=== PATIENT | male | born 1965 | race Caucasian/White ===

== ENCOUNTER 2017-03-07 06:30 | Inpatient (IN) ==
[2017-03-07] MEDS ORDERED: Lidocaine -MPF 1% 2 ML VIAL ID ONE (06:49)
[2017-03-07] MEDS ORDERED: CeFAZolin Pre 2,000 MG/100 ML 2,000 MG/100 ML BAG IVPB ONE (06:49)
[2017-03-07] MEDS ORDERED: Vancomycin 1,750 MG in D5% in Water 500 ML IVPB ONE ×2 (06:49→21:00)
[2017-03-07] MEDS ORDERED: Albuterol 2.5 MG/3 ML NEBULIZER IH ONE (06:54)
[2017-03-07] MEDS ORDERED: Dexamethasone 4 MG/ML VIAL ONE (07:05)
[2017-03-07] MEDS ORDERED: *HR* Phenylephrine 10 MG/ML VIAL ONE (07:05)
[2017-03-07] MEDS ORDERED: Lidocaine -MPF 4% 5 ML AMPUL ONE (07:05)
[2017-03-07] MEDS ORDERED: Lidocaine -MPF 2% 2 ML VIAL ONE (07:05)
[2017-03-07] MEDS ORDERED: *HR* Succinylcholine 200 MG/10 ML VIAL IVP ONE (07:05)
[2017-03-07] MEDS ORDERED: Ondansetron 4 MG/2 ML VIAL ONE (07:05)
[2017-03-07] MEDS ORDERED: *HR* Remifentanil 1 MG VIAL IVP ONE ×2 (07:15→10:59)
[2017-03-07] MEDS ORDERED: *HR* FentaNYL (PF) 100 MCG/2 ML VIAL ONE ×2 (07:15→09:58)
[2017-03-07] MEDS ORDERED: *HR* Midazolam HCl 2 MG/2 ML VIAL ONE (07:15)
[2017-03-07] MEDS ORDERED: *HR* Propofol 200 MG/20 ML VIAL IVP ONE (07:20)
[2017-03-07] MEDS: Ringers Solution, Lactated 1,000 ML IVC SCH ×2 (07:23→14:14)
[2017-03-07] MEDS ORDERED: Lidocaine -MPF 1% 2 ML VIAL ONE (07:33)
--- NOTE | 2017-03-07 07:52 | Anesthesia Evaluation PreOp ---
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 History: Denies Any Significant HX Other Medical History: Renal (cri, stones) Anesthesia History: No Prior Anesthetic Complications, Past Anesthesia (back, cholecyst, vasect, umb filippo, lami) Alcohol Use: none Drug use: none Medications and Allergies Atorvastatin [Lipitor] 40 mg PO DAILY 05/22/16 [History] Gabapentin [Neurontin] 300 mg PO TID 05/22/16 [History] Lisinopril [Zestril] 10 mg PO DAILY 05/22/16 [History] Aspirin 81 mg PO DAILY 02/13/17 [History] Clopidogrel Bisulfate [Plavix] 75 mg PO DAILY #30 tablet 02/13/17 [Rx] Oxycodone HCl/Acetaminophen [Percocet 5-325 mg Tablet] 1 each PO Q6H PRN [History] Caffeine 400 mg PO BID 03/07/17 [History] Allergies ketorolac [From Toradol] Allergy (Verified 03/07/17 07:27) See Comments PER PATIENT "MADE ME WANT TO JUMP OUT OF MY SKIN" - Meds/Allergy Pre-op Review Medications Reviewed: Yes Allergies Reviewed: Yes Beta Blockers on Current Med List: No Anesthesia Results - Labs Laboratory Tests 02/08/17 02/08/17 02/08/17 10:46 10:46 10:46 Hgb 15.8 Hct 46.6 Plt Count 310 PT 10.5 INR 1.0 APTT 31.2 Sodium 141 Potassium 4.2 Creatinine 1.34 H - Imaging EKG: report reviewed (sr) Anesthesia Exam O2 Sat Height 1.85 m Height 1.85 m Height 1.85 m Weight 117.48 kg Weight 117.48 kg Weight 117.48 kg O2 Sat by Pulse Oximetry 93 O2 Sat by Pulse Oximetry 93 Vital Signs Temp Pulse Resp BP Pulse Ox 97.7 F 80 18 125/72 93 03/07/17 06:47 03/07/17 06:47 03/07/17 06:47 03/07/17 06:47 03/07/17 06:47 Height: 1.85 Weight: 117 NPO (# of Hours): >8 - HEENT Pupil (Motor): Pupils equal, EOMI Mallampati: II Teeth: Poor dentition Oral Opening: Greater than 3 - PURCHASING COORDINATOR LOC: Oriented PURCHASING COORDINATOR Motor: Normal RUE, Normal LUE, Normal RLE, Normal LLE, Normal Face PURCHASING COORDINATOR Sensory: Normal: RUE, LUE, RLE, LLE, Face - Cardiac Rhythm: Regular Murmur: None - Pulmonary Breath Sounds: bilateral Clear Respiratory Effort: Symmetrical Anesthesia Assess/Plan ASA Score: 3 Modified Cookie Scale for Level of Consciousness: Cooperative, oriented, and tranquil Anesthetic Plan: General Monitoring Plan: Standard Monitors Recovery Plan: PACU
--- NOTE | 2017-03-07 07:56 | History & Physical Report ---
Date of Encounter: 03/07/17 Time of Encounter: 07:54 24 Hour HP Update - Instructions Instructions: If the History and Physical is less than 30 days old and was completed prior to A.M. admission and or procedure and has NOT been updated on calendar day of procedure please complete this update prior to performing procedure. - Update Patient reports changes in Medical Condition: No Changes in examination, assessment, or condition: No Changes in Medication: No Preop tests/diagnostics Reviewed: Yes Surgery Remains Indicated: Yes Consent for Planned Operative Procedure(s) Verified: Yes - Pre-Operative Checklist Preoperative Checklist Indicated: Yes Prophylactic Antibiotic Ordered: Yes (vancomycin due to mrsa risk) Home Medications Include Beta Jacy: No Beta Jacy Taken Today (Day of Surgery): No Beta Jacy Taken Yesterday (Day Prior to Surgery): No Is VTE Prophylaxis Indicated?: Yes
[2017-03-07] MEDS ORDERED: EPHEDrine 50 MG/ML VIAL ONE (09:01)
[2017-03-07] MEDS ORDERED: Heparin 1,000 UNITS/500 mL NS 500 ML ONE (09:05)
[2017-03-07] MEDS ORDERED: *HR* Labetalol 20 MG/4 ML SYRINGE IVP PRN ×2 (09:32→14:26)
[2017-03-07] MEDS ORDERED: *HR* Heparin 5,000 UNIT/ML VIAL ONE ×2 (09:55→10:17)
[2017-03-07] MEDS ORDERED: *HR* HYDROmorphone 2 MG/ML SYRINGE ONE (13:11)
--- NOTE | 2017-03-07 13:21 | Operative Note ---
Date of procedure: 03/07/17 Pre-op diagnosis: Peripheral Vascular Disease with Disabling Claudication Post-op diagnosis: same Procedure: 1. Right proximal anterior tibial artery endarterectomy. 2. Right tibioperoneal trunk artery endarterectomy. 3. Right posterior tibial artery thrombectomy with 3 gabonese carissa catheter. Complications: None Anesthesia: EHSANA Surgeon: Albino Olvera Estimated blood loss (cc): 100 Specimen: Right tibial thrombus and plaque Condition: stable Disposition: PACU Procedure in Detail: Indications: The patient is a 51 year old male with a history of peripheral vascular disease with disabling claudication. He was found to have a right tibial artery occlusion on angiography. 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 Revascularization was recommended for symptomatic relief. Procedure: The patient was identified in the preoperative area. The risks, benefits, and alternatives of procedure were discussed and all questions were answered. He was taken to the operating room and placed in supine position on the operating room table. After the induction of general endotracheal anesthesia, he was cleaned and draped in normal sterile fashion. A longitudinal incision was made along the right medial calf sharply. Hemostasis was obtained with electrocautery. Through a process of blunt and sharp electrocautery dissection, the skin and subcutaneous tissues were incised and the gastrocnemius muscle was retracted to expose the right popliteal and tibial arteries. The popliteal, proximal anterior tibial, tibioperoneal trunk, peroneal and posterior tibial arteries were dissected proximally to distally and surrounded with vessel loops. Mutliple branching veins were ligated and divided with 2-0 and 3-0 silk suture. Care was taken to avoid injury to the nerve and veins. The patient received 5000 units of heparin intravenously and additional heparin throughout the case to maintain adequate anticoagulation. The vessels were occluded. A longitudinal arteriotomy into the right popliteal artery proximally and extended distally through the tibioperoneal trunk and into the origin of the posterior tibial artery. Significant thrombus and plaque was encountered extending from the proximal anterior tibial artery, through the tibioperoneal trunk and into the posterior tibial artery. The plaque and thrombus were excised using a dental freer. The specimen was sent to pathoology. Upon release of the distal vessel loop, no backbleeding was noted. A 3 gabonese carissa catheter was passed into the posterior tibial artery down to the foot. Upon withdrawal, additional thrombus was retrieved. Two addional passes were performed and no further thrombus was removed. Backbleeding was noted from the vessel. The posterior tibial artery was flushed with heparinized saline and reoccluded. The exposed vessel lumen was irrigated with heparinized saline and bovine pericardial patch was cut to fit the defect and sutured in place with running 6- 0 Prolene. Prior to completing the patch anastomosis, each vessel was flushed individually, then reoccluded. Heparinized saline was infused into the lumen. The patch was completed and flow was restored. Thrombin and Gelfoam were used to aid in hemostasis. Polyphasic signal was noted distal to the distal end of the patch as well as the posterior tibial artery. Wound was irrigated with antibiotic-containing saline. Platelet-rich and platelet-poor plasma were infused into the wound. The wounds were reapproximated with layer of 2-0 Vicryl followed by two layers of 3-0 and Vicryl 3-0 Monocryl in the subcuticular layer. Sterile dressings were applied. The patient was extubated, taken to recovery room in stable condition.
[2017-03-07] MEDS: *HR* HYDROmorphone (PF) 1 MG/ML SYRINGE IVP PRN ×4 (13:28→14:12)
[2017-03-07] MEDS ORDERED: Acetaminophen IV 1,000 MG/100 ML INFUS..BTL IVPB ONE (13:38)
--- NOTE | 2017-03-07 14:19 | Event Note ---
Date of Encounter: 03/07/17 Time of Encounter: 13:30 The patient is comfortable, right foot is warm with dorsalis and posterior tibial artery signals. Pain control and clear liquids tonight. Labs tomorrow.
[2017-03-07] MEDS ORDERED: *HR* HYDROcodone/Acet 5/325 mg TABLET PO PRN (14:26)
[2017-03-07] MEDS ORDERED: *HR* OxyCODONE Immed Rel 5 MG TABLET PO PRN (14:26)
[2017-03-07] MEDS ORDERED: Acetaminophen 325 MG TABLET PO PRN (14:26)
[2017-03-07] MEDS ORDERED: Naloxone 0.4 MG/ML INJ IVP PRN (14:26)
--- NOTE | 2017-03-07 14:33 | Anesthesia Evaluation Post Op ---
Date of Encounter: 03/07/17 Time of Encounter: 14:32 - Vital Signs Vital Signs: Vital Signs/O2 Sat/Glucose, Most Recent Temp Pulse Resp BP Pulse Ox 97.7 F 77 12 110/71 93 03/07/17 14:15 03/07/17 14:15 03/07/17 14:15 03/07/17 14:15 03/07/17 14:15 - Lungs Lungs: Clear Ascult./Percussion - Airway Airway: Non-obstructed - Cardiovascular Regular Rate, Baseline Rhythm - Mental Status Mental Status: Asleep with brisk response to light stimulation - Pain Pain Scale: 5 Pain Scale used: Numeric (1 - 10) - Nausea Vomiting Nausea Vomiting: Not Present - Hydration Hydration: Tolerates oral liquids Notes: 03/07/17 14:33 naac - Discharge PostOp Status: Transfer Patient to floor
[2017-03-07] MEDS: *HR* Morphine 2 MG/ML SYRINGE IVP PRN ×2 (14:53→16:41)
[2017-03-07] MEDS: 0.9 % Sodium Chloride 1,000 ML IVC SCH (14:58)
[2017-03-07] MEDS: Gabapentin 300 MG CAPSULE PO SCH ×2 (15:29→21:39)
[2017-03-07] MEDS: ceFAZolin 2,000 MG in D5% in Water 100 ML IVPB SCH ×2 (16:24→23:02)
[2017-03-07] MEDS: *HR* Metoprolol 5 MG/5 ML VIAL IVP SCH ×2 (17:32→23:51)
[2017-03-07] MEDS: *HR* Heparin 5,000 UNIT/ML VIAL SQ SCH (17:47)
[2017-03-07] MEDS ORDERED: Vancomycin 0 MG in D5% in Water 250 ML IVPB ONE (19:00)
[2017-03-07] MEDS: Ondansetron 4 MG/2 ML VIAL IVP PRN (23:01)
[2017-03-08] MEDS ORDERED: *HR* Promethazine 25 MG/ML VIAL IVP ONE (00:15)
[2017-03-08] MEDS: *HR* Morphine 2 MG/ML SYRINGE IVP PRN (02:04)
[2017-03-08] MEDS: *HR* Heparin 5,000 UNIT/ML VIAL SQ SCH (04:46)
[2017-03-08] MEDS: 0.9 % Sodium Chloride 1,000 ML IVC SCH (04:46)
[2017-03-08] MEDS: *HR* Metoprolol 5 MG/5 ML VIAL IVP SCH ×2 (04:47→12:55)
[2017-03-08] MEDS ORDERED: Metoclopramide 10 MG/2 ML VIAL IVP PRN (05:46)
[2017-03-08] MEDS ORDERED: *HR* Heparin 5,000 UNIT/ML VIAL SQ SCH (06:00)
[2017-03-08 06:11] LABS: Basophils # 0.1 K/mcL (0.0-0.2); Basophils % 0.2 %; Hematocrit 39.1 % (37.5-50.1); Immature Granulocytes % 0.6 % (0-4); Lymphocytes # 2.8 K/mcL (0.6-4.6); Lymphocytes % 12.3 %; Mean Corpuscular HGB Conc 33.2 g/dL (31.6-35.5); Mean Corpuscular Hemoglobin 28.8 pg (28.0-33.3); Mean Corpuscular Volume 86.7 fL (83.0-100.0); Mean Platelet Volume 8.7 fL (9.4-12.4); Monocytes # 1.2 K/mcL (0.0-1.3); Monocytes % 5.4 %; Neutrophils # 18.3 K/mcL (1.6-8.9); Platelet Count 294 K/mcL (140-400); Red Blood Count 4.51 M/mcL (4.19-5.50); Red Cell Distribution Width 13.9 % (11.5-14.5); Segmented Neutrophils % 81.5 %
[2017-03-08 06:27] LABS: BUN/Creatinine Ratio 14 (6-26); Blood Urea Nitrogen 14 mg/dL (8-26); Calcium 8.8 mg/dL (8.6-10.8); Carbon Dioxide 19 mEq/L (19-29); Chloride 107 mEq/L (98-109); Glucose 106 mg/dL (70-99); Osmolality,Calculated 281 (280-300); Sodium 135 mEq/L (136-145); eGFR For African Americans > 60 (> 60); eGFR For Non-African Americans > 60 (> 60)
[2017-03-08] MEDS: Ondansetron 4 MG/2 ML VIAL IVP PRN (07:23)
--- NOTE | 2017-03-08 07:36 | Discharge Summary ---
Date of Encounter: 03/08/17 Time of Encounter: 15:35 - Discharge Diagnosis (1) Atherosclerosis of [place] arteries of extremities with intermittent claudication, bilateral legs Priority: Primary Status: Chronic Comments: The patient is postoperative day #1 after a right tibial endarterectomy and thrombectomy. His wound is healing. He is alert and comfortable. His pedal signals are present and his compartments are soft. He will be discharged today. (2) Essential hypertension Priority: Secondary Status: Chronic Comments: He was counseled regarding atherosclerotic risk factor reduction. (3) CKD (chronic kidney disease) stage 3, GFR 30-59 ml/min Priority: Secondary Status: Chronic Comments: His creatinine has improved with hydration. His kidney disease is stable. (4) Mixed hyperlipidemia Priority: Secondary Status: Chronic (5) Tobacco abuse Priority: Secondary Status: Chronic - Discharge Medications Prescriptions: Ibuprofen [Motrin] 800 mg PO Q8HR PRN #30 tablet PRN Reason: postoperative pain Acetaminophen [Tylenol] 1,000 mg PO Q6H PRN #90 tablet PRN Reason: postoperative pain Home Medications: Atorvastatin [Lipitor] 40 mg PO DAILY 05/22/16 [History] Gabapentin [Neurontin] 300 mg PO TID 05/22/16 [History] Lisinopril [Zestril] 10 mg PO DAILY 05/22/16 [History] Aspirin 81 mg PO DAILY 02/13/17 [History] Clopidogrel Bisulfate [Plavix] 75 mg PO DAILY #30 tablet 02/13/17 [Rx] Caffeine 400 mg PO BID 03/07/17 [History] Acetaminophen [Tylenol] 1,000 mg PO Q6H PRN #90 tablet 03/08/17 [Rx] Ibuprofen [Motrin] 800 mg PO Q8HR PRN #30 tablet 03/08/17 [Rx] Allergies/Adverse Reactions: Allergies ketorolac [From Toradol] Allergy (Verified 03/07/17 07:27) See Comments PER PATIENT "MADE ME WANT TO JUMP OUT OF MY SKIN" Date of admission: 03/07/17 11:48 Primary care physician: Jaiden Evans MD Procedure(s) Performed: Right tibial artery thrombectomy and endarterectomy Discharging clinician: Albino Olvera Anticipated date of discharge: 03/08/17 - Patient Status Disposition: Home, Self-Care Condition: Good Functional capacity at discharge: independent ambulation Overall status at discharge: patient is back to baseline - Discharge Instructions Instructions: Surgical Site Infections (GEN) Follow Up With: Jaiden Evans MD [Primary Care Provider] - 03/13/17 1:15 pm () Albino Olvera MD [Partnered Physician] - 04/16/17 1:00 pm () Additional Instructions: May remove bandage and shower on 03/09/17. Wash wound gently and pat to dry. Apply dry gauze to wound daily for 7 days. No tub baths or swimmin until 04/01/17. Call Dr. Olvera at [phone] with questions or concerns. - Diet and Activity Activity: increase activity as tolerated Diet: advance to your usual diet - Hospital Course Hospital course: Mr. Samuel is a 51 year old male who was admitted on 03/07/17. He underwent a right tibial thrombectomy and endarterectomy. He tolerated the procedure well. His foot was warm, his incision was healing and he was comfotable on post operative day #1. He was discharged in stable condition without complication. Time spent discussing smoking cessation with patient: 3 to 10 minutes - Time Spent with Patient Total time spent providing and/or coordinating discharge services: Exam Vital Signs, Last 4 Hours Temp Pulse Resp BP Pulse Ox 03/08/17 03:57 98.8 F 85 16 104/67 91 General: Present: Conversant, No Apparent Distress HEENT: Present: Atraumatic Cardiac: Present: Reg Rate and Rhythm Lungs: Present: Normal Breath Sounds, No Wheeze, Rales, Rhonchi Neuro: Present: Alert and responsive, No focal deficits noted, Motor nerves grossly intact, Sensory nerves grossly intact Abdomen: Present: Soft Vascular: Present: Surgical incisions (no hematoma, no erythema, compartments soft) Skin: Present: No rashes noted on visualized skin - VTE Documentation of Mechanical Device: Intermittent pneumatic compression device
[2017-03-08] MEDS ORDERED: *HR* Promethazine 25 MG/ML VIAL IVP PRN (08:38)
[2017-03-08] MEDS ORDERED: Ibuprofen 800 MG TABLET PO PRN (08:42)
[2017-03-08] MEDS ORDERED: Aspirin 81 MG TAB.CHEW PO SCH (09:00)
[2017-03-08] MEDS: Gabapentin 300 MG CAPSULE PO SCH (09:49)
[2017-03-08 11:01] VITALS: BP 123/77
== END 2017-03-08 17:05 | disposition home or self-care (01) | DRG 254 ==
LOC: SAMDAY 06:30 → 2NNU 11:48
PROVIDERS: ADMIT Surgery; ATTEND Surgery

== ENCOUNTER 2017-05-08 08:45 | Inpatient (IN) ==
[2017-05-08] MEDS ORDERED: 0.9 % Sodium Chloride 1,000 ML IVC ONE (09:14)
[2017-05-08] MEDS ORDERED: Ondansetron ODT 4 MG TAB.RAPDIS SL ONE (09:14)
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
[2017-05-08 09:34] LABS: Bilirubin,Urine Negative (Negative); Blood,Urine Small (Negative); Color,Urine Yellow (Yellow); Glucose,Urine (UA) Normal (Normal); Ketones,Urine Negative (Negative); Leukocyte Esterase,Urine Small (Negative); Nitrite,Urine Negative (Negative); Protein,Urine 30 mg/dL (Neg-Trace); Specific Gravity,Urine 1.013 (1.010-1.025); Urobilinogen,Urine Normal (Normal)
[2017-05-08 09:37] LABS: Hyaline Casts,Urine None Seen per lpf (None-Few); Squamous Epithelial Cell,Urine Moderate per lpf (None-Few); WBC,Urine 15-30 per hpf (0-3)
[2017-05-08 09:38] LABS: Basophils # 0.1 K/mcL (0.0-0.2); Basophils % 0.6 %; Eosinophils % 0.3 %; Hematocrit 41.6 % (37.5-50.1); Hemoglobin 13.6 g/dL (12.9-16.9); Immature Granulocytes % 0.3 % (0-4); Lymphocytes # 1.3 K/mcL (0.6-4.6); Lymphocytes % 10.6 %; Mean Corpuscular HGB Conc 32.7 g/dL (31.6-35.5); Mean Corpuscular Hemoglobin 29.6 pg (28.0-33.3); Mean Corpuscular Volume 90.4 fL (83.0-100.0); Mean Platelet Volume 8.7 fL (9.4-12.4); Monocytes # 0.9 K/mcL (0.0-1.3); Monocytes % 7.3 %; Neutrophils # 10.1 K/mcL (1.6-8.9); Platelet Count 324 K/mcL (140-400); Red Cell Distribution Width 14.5 % (11.5-14.5); Segmented Neutrophils % 80.9 %
[2017-05-08 09:40] LABS: Clarity,Urine Slightly Hazy (Clear)
[2017-05-08 09:53] LABS: Albumin 3.2 g/dL (3.5-5.0); Albumin/Globulin Ratio 0.7 (1.1-2.2); Bilirubin,Direct 0.2 mg/dL (0.0-0.5); Bilirubin,Indirect 0.2 mg/dL (0.0-1.2); Bilirubin,Total 0.4 mg/dL (0.2-1.2); Globulin 4.3 g/dL (2.4-3.5); Potassium 6.4 mEq/L (3.5-4.5); Total Protein 7.5 g/dL (6.0-8.3)
[2017-05-08 09:53] LABS: Bacteria,Urine Few per hpf (None-Few)
[2017-05-08] MEDS ORDERED: Albuterol 2.5 MG/3 ML NEBULIZER IH ONE (10:20)
[2017-05-08] MEDS ORDERED: Insulin Human Regular 10 UNIT in 0.9 % Sodium Chloride 10 ML IV ONE (10:21)
[2017-05-08] MEDS ORDERED: *HR* Dextrose 50 % in Water (Syg) 50 ML SYRINGE IVP ONE (10:25)
[2017-05-08] MEDS ORDERED: Sodium Bicarbonate 50 MEQ/50 ML VIAL IVP ONE ×2 (10:39→11:30)
[2017-05-08] MEDS ORDERED: D5% in Water 1,000 ML IVC SCH (10:45)
[2017-05-08] MEDS ORDERED: 0.9 % Sodium Chloride 1,000 ML IVC SCH (11:45)
[2017-05-08] MEDS: Sodium Bicarbonate 150 MEQ in D5% in Water 1,000 ML IVC SCH (11:48)
[2017-05-08] MEDS ORDERED: Naloxone 0.4 MG/ML INJ IVP PRN (11:53)
[2017-05-08] MEDS ORDERED: Ondansetron 4 MG/2 ML VIAL IVP PRN (11:53)
[2017-05-08] MEDS ORDERED: Pantoprazole 40 MG VIAL IVP SCH (12:00)
[2017-05-08] MEDS ORDERED: Acetaminophen 325 MG TABLET PO PRN (12:04)
[2017-05-08] MEDS ORDERED: CloNIDine Patch 0.1 MG PATCH (WEEKLY) TD SCH (12:15)
[2017-05-08] MEDS ORDERED: Gabapentin 300 MG CAPSULE PO PRN (12:16)
[2017-05-08] MEDS: Nicotine 14 MG PATCH.TD24 TD SCH (12:21)
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
[2017-05-08] MEDS: *HR* HYDROcodone/Acet 5/325 mg TABLET PO PRN ×2 (16:11→21:10)
[2017-05-08 17:08] LABS: Albumin 3.1 g/dL (3.5-5.0); Albumin/Globulin Ratio 0.8 (1.1-2.2); Bilirubin,Total 0.4 mg/dL (0.2-1.2); Calcium 9.5 mg/dL (8.6-10.8); Total Protein 7.1 g/dL (6.0-8.3)
[2017-05-08] MEDS: *HR* Heparin 5,000 UNIT/ML VIAL SQ SCH ×3 (17:37→23:32)
[2017-05-08 19:10] LABS: Amphetamine Screen,Urine Negative ng/mL (Cutoff=1000); Barbiturate Screen,Urine Negative ng/mL (Cutoff=200); Benzodiazepines Screen,Urine Negative ng/mL (Cutoff=200); Cannabinoid Screen,Urine Negative ng/mL (Cutoff = 50); Cocaine Screen,Urine Negative ng/mL (Cutoff= 300); Opiate Screen,Urine Negative ng/mL (Cutoff=300); Phencyclidine Screen,Urine Negative ng/mL (Cutoff=25)
[2017-05-08] MEDS: Pantoprazole 40 MG VIAL IVP SCH (21:10)
[2017-05-09] MEDS: Sodium Bicarbonate 150 MEQ in D5% in Water 1,000 ML IVC SCH ×2 (00:13→11:25)
[2017-05-09] MEDS ORDERED: 0.9 % Sodium Chloride 500 ML IVC ONE (04:25)
[2017-05-09] MEDS ORDERED: 0.9 % Sodium Chloride 500 ML ONE (04:42)
--- NOTE | 2017-05-09 05:42 | Electrocardiograph Report ---
[address] [address] Test Date: 2017-05-08 Pat Name: Larissa Samuel Department: 102 Room: 2N05 Gender: M Triage Register Nurse: : 1965 Requested By: Anu Chandler Order Number: [id number] Reading MD: Rylan Almaguer MD Measurements Intervals [place] Rate: 67 P: 41 CA: 164 QRS: 81 QRSD: 105 T: 36 QT: 389 QTc: 404 Interpretive Statements SINUS RHYTHM LOW QRS VOLTAGE IN PRECORDIAL LEADS Electronically Signed On 05-09-2017 5:40:35 EDT by Rylan Almaguer MD
[2017-05-09 06:21] LABS: Basophils # 0.1 K/mcL (0.0-0.2); Basophils % 0.7 %; Eosinophils # 0.2 K/mcL (0.0-0.6); Eosinophils % 1.6 %; Hematocrit 33.7 % (37.5-50.1); Immature Granulocytes % 0.3 % (0-4); Lymphocytes # 2.4 K/mcL (0.6-4.6); Lymphocytes % 24.3 %; Mean Corpuscular HGB Conc 33.2 g/dL (31.6-35.5); Mean Corpuscular Hemoglobin 29.3 pg (28.0-33.3); Mean Corpuscular Volume 88.2 fL (83.0-100.0); Monocytes # 0.9 K/mcL (0.0-1.3); Monocytes % 9.3 %; Neutrophils # 6.2 K/mcL (1.6-8.9); Platelet Count 276 K/mcL (140-400); Red Blood Count 3.82 M/mcL (4.19-5.50); Red Cell Distribution Width 14.5 % (11.5-14.5); Segmented Neutrophils % 63.8 %
[2017-05-09 06:28] LABS: Prothrombin Time 10.2 Seconds (9.4-12.1)
[2017-05-09 06:31] LABS: Activated Partial Thrombo Time 25.7 Seconds (26.0-36.0)
[2017-05-09 06:39] LABS: Calcium 8.3 mg/dL (8.6-10.8); Chol/HDL Ratio 9.1 (0-4.9); Magnesium 1.7 mg/dL (1.6-2.6); Potassium 4.6 mEq/L (3.5-4.5)
[2017-05-09 06:55] LABS: Hemoglobin 11.2 g/dL (12.9-16.9)
[2017-05-09] MEDS: Nicotine 14 MG PATCH.TD24 TD SCH (09:10)
[2017-05-09] MEDS: Pantoprazole 40 MG VIAL IVP SCH ×2 (09:12→20:13)
[2017-05-09] MEDS: *HR* Heparin 5,000 UNIT/ML VIAL SQ SCH ×2 (09:12→20:13)
--- NOTE | 2017-05-09 09:15 | Internal Med Progress Note ---
Date of Encounter: 05/09/17 Time of Encounter: 09:13 - Assessment and plan (1) STEFANY (acute kidney injury) Current Visit: Yes Status: Acute Assessment and plan: Patient is noted to have acute on chronic renal failure. Baseline serum creatinine noted to be around 1.5 in January 2017, presented with serum creatinine of 12. Nephrology consult and follow-up appreciated, acute renal failure is likely due to contrast-induced nephropathy, use of NSAIDs, FILIBERTO inhibitor, dehydration due to GI losses. Recommend conservative management with IV hydration, no urgent indication for hemodialysis at this time. Avoid new nephrotoxic agents. Monitor and replete electrolytes closely. Renal ultrasound shows no acute abnormality/hydronephrosis. (2) Hyperkalemia Current Visit: Yes Status: Resolved Assessment and plan: Related to acute renal failure. Noted to be improving. (3) Nausea & vomiting Current Visit: Yes Status: Resolved Assessment and plan: Possibly due to uremia, NSAID-induced gastritis less likely. Currently resolved symptoms. Qualifiers: Vomiting type: unspecified Vomiting Intractability: non-intractable Qualified Code(s): R11.2 - Nausea with vomiting, unspecified (4) Metabolic acidosis Current Visit: Yes Status: Acute Assessment and plan: Related to acute renal failure. Continue IV bicarbonate drip. Nephrology on board. (5) UTI (urinary tract infection) Current Visit: Yes Status: Acute Assessment and plan: Urinalysis suggestive of UTI. Continue IV Rocephin and follow up final urine culture. Qualifiers: Urinary tract infection type: site unspecified Hematuria presence: without hematuria Qualified Code(s): N39.0 - Urinary tract infection, site not specified (6) Lumbar radiculopathy Current Visit: Yes Status: Chronic Assessment and plan: Patient has history of back surgery and chronic low back pain. Follows with pain management as an outpatient. (7) Essential hypertension Current Visit: Yes Status: Chronic Assessment and plan: Hold FILIBERTO inhibitor for now. Blood pressure noted to be well controlled. (8) CKD (chronic kidney disease) stage 3, GFR 30-59 ml/min Current Visit: Yes Status: Chronic (9) Mixed hyperlipidemia Current Visit: Yes Status: Chronic (10) Tobacco abuse Current Visit: Yes Status: Chronic (11) PAD (peripheral artery disease) Current Visit: Yes Status: Chronic Assessment and plan: Follows with vascular surgery. Recently underwent right tibial endarterectomy. Continue aspirin and Plavix. - Subjective Interval history: Feels better; improved nausea and vomiting, tolerates diet; no abdominal pain or diarrhea; no difficulty breathing, chest pain; - Constitutional Vitals: Temp Pulse Resp BP Pulse Ox 98.1 F 66 15 90/55 94 05/09/17 07:16 05/09/17 07:16 05/09/17 07:16 05/09/17 07:16 05/09/17 07:16 General appearance: Present: cooperative, A&O X 3, obese, answers questions appropriately - Respiratory Respiratory exam: Present: CTAB. Absent: accessory muscle use, rales, rhonchi, wheezes - Cardiovascular Cardiovascular exam: Present: RRR, +S1, +S2. Absent: diastolic murmur, gallop, rubs, systolic murmur - GI/Abdominal GI/Abdominal exam: Present: normal bowel sounds, soft, no peritoneal signs. Absent: distended, tenderness - Extremities Exam Extremities exam: Present: full ROM, pedal edema (trace pedal edema right>left; right medial leg vascular surgical scar), warm, radial pulses palpable and symmetrical. Absent: calf tenderness, cyanotic - Neurological Exam Neurological exam: Present: CN II-XII intact, oriented X3, no focal deficits. Absent: pronater drift, facial droop, speech deficit Internal Medicine: Result - Labs CBC & Chem 7: 05/09/17 05:09 05/09/17 05:09 Labs: Short CBC 05/09/17 Range/Units 05:09 WBC 9.7 (4.3-11.1) K/mcL Hgb 11.2 L D (12.9-16.9) g/dL Hct 33.7 L (37.5-50.1) % Plt Count 276 (140-400) K/mcL Neutrophils # 6.2 (1.6-8.9) K/mcL BMP 05/08/17 05/09/17 16:47 05:09 Sodium 142 140 Potassium 5.0 H D 4.6 H Chloride 108 105 Carbon Dioxide 17 L 17 L BUN 100 H 87 H Creatinine 10.88 H 9.39 H Glucose 98 137 H Calcium 9.5 8.3 L Liver Function 05/08/17 Range/Units 16:47 Total Bilirubin 0.4 (0.2-1.2) mg/dL AST 7 (5-34) Units/L ALT 10 (0-55) Units/L Alkaline Phosphatase 119 (38-126) Units/L Albumin 3.1 L (3.5-5.0) g/dL - ABG Interpretation ABG results: PT/INR, D-dimer PT 10.2 Seconds (9.4-12.1) 05/09/17 05:09 - Impressions Impressions Retroperitoneum Ultrasound 05/08/17 19:00 IMPRESSION: Unremarkable ultrasound of the kidneys and urinary bladder. D/ / eJsse Valiente MD / Jesse Valiente MD Interpreting Provider: Jesse Valiente MD Consult Discharge Plan - Plan Referrals: Jaiden Evans MD [Primary Care Provider] - 05/15/17 9:45 am ()
[2017-05-09] MEDS: *HR* HYDROcodone/Acet 5/325 mg TABLET PO PRN ×2 (09:21→17:59)
--- NOTE | 2017-05-09 11:14 | Nephrology Progress Note ---
Date of Encounter: 05/09/17 Time of Encounter: 11:05 - Assessment and Plan (1) STEFANY (acute kidney injury) Current Visit: Yes Status: Acute Additional information provided by patient. Had vascular surgery to right LE approximately 5 weeks ago involving the use of contrast. STEFANY in most likely in setting of contrast nephropathy related to recent contrast exposure with recent chronic NSAID use and GI losses contributing. Gastritis most likely related to chronic NSAID use. Hyperkalemia improved, K 4.6, Will continue IV D5W [address] Abd/Pelvis-no acute findings. Renal US unremarkable. Reviewed with Dr. Ricardo, no immediate need for HD. Avoid nephrotoxins Subjective Interval history: Laying in bed, watching tv. States feeling better. Denies any further emesis since 0400 yesterday. No new complaints. Additional info provided from patient; had vascular surgery to right LE approximately 5 weeks ago that involved use of contrast. Objective - Vital Signs Vital signs: Vital Signs Temp Pulse Resp BP Pulse Ox 05/09/17 09:26 72 05/09/17 09:15 78 106/63 95 05/09/17 07:16 98.1 F 66 15 90/55 94 05/09/17 06:48 69 94/56 05/09/17 05:25 66 93/56 05/09/17 05:00 98.0 F 71 18 89/67 96 05/09/17 04:10 80/52 05/09/17 00:28 97.6 F 73 18 90/52 97 05/08/17 20:32 98.2 F 77 18 103/59 96 05/08/17 18:40 80 05/08/17 17:51 16 110/70 05/08/17 17:00 71 16 115/69 96 05/08/17 15:53 68 16 110/65 95 05/08/17 15:00 72 16 107/74 97 05/08/17 14:00 67 16 104/62 97 05/08/17 13:00 73 16 100/70 96 Intake and Output 05/08/17 05/09/17 05/09/17 23:59 07:59 15:59 Intake Total 1100 / 1100 740 / 740 1280 / 1280 Output Total 725 / 725 1830 / 1830 Balance 375 / 375 -1090 / -1090 1280 / 1280 Intake: IV Fluids 1100 / 1100 500 / 500 0.9 % Sodium Chloride 1, 0 / 0 000 ML @ 150 mls/hr IVC . [id number] [facility] Rx#:[id number] 0.9 % Sodium Chloride 500 500 / 500 ML @ 1875 mls/hr IVC . Q16M [facility] Rx#:[id number] Sodium Bicarbonate 150 1000 / 1000 MEQ In Dextrose 5% 1,000 ML @ 100 mls/hr IVC . [id number] [facility] Rx#: [id number] Rocephin 1,000 MG In 100 / 100 Dextrose 5% (Minibag+) 100 ML 100 ML @ 200 mls/ hr IVPB ONCE [facility] Rx#: [id number] Oral 240 / 240 1280 / 1280 Output: Urine 725 / 725 1830 / 1830 Other: Meal Breakfast Percent of Meal Consumed 100% Weight 117.7 kg 121.3 kg Patient Weight 05/09/17 23:59 Weight 121.3 kg - General Appearance General appearance: Present: well-developed, well-nourished, appears started age EENT: Present: mucous membranes moist Neck: Present: no JVD Respiratory: Present: clear Cardiology: Present: no edema, regular rate, regular rhythm Gastrointestinal: Present: normoactive bowel sounds, no tenderness Integumentary: Present: warm and dry Neurologic: Present: alert and oriented x3 Psychiatric: Present: mood/affect appropriate, cooperative - Lab 05/09/17 05:09 05/09/17 05:09 Most recent lab results Calcium 8.3 mg/dL (8.6-10.8) L 05/09/17 05:09 Magnesium 1.7 mg/dL (1.6-2.6) 05/09/17 05:09 Consult Discharge Plan - Plan Referrals: Jaiden Evans MD [Primary Care Provider] -
[2017-05-09 13:46] LABS: Creatinine,Urine 58 mg/dL; Microalbum/Creatinine Ratio,Ur 72 (0-30); Microalbumin,Urine 42 mg/L
[2017-05-10] MEDS: Sodium Bicarbonate 150 MEQ in D5% in Water 1,000 ML IVC SCH (00:56)
[2017-05-10] MEDS: *HR* HYDROcodone/Acet 5/325 mg TABLET PO PRN ×2 (02:03→09:11)
[2017-05-10 05:22] LABS: Calcium 8.7 mg/dL (8.6-10.8); Potassium 4.2 mEq/L (3.5-4.5)
[2017-05-10] MEDS: *HR* Heparin 5,000 UNIT/ML VIAL SQ SCH ×2 (09:10→21:09)
[2017-05-10] MEDS: Aspirin 81 MG TAB.CHEW PO SCH (09:12)
[2017-05-10] MEDS: Nicotine 14 MG PATCH.TD24 TD SCH (09:12)
[2017-05-10] MEDS: Pantoprazole 40 MG VIAL IVP SCH (09:12)
--- NOTE | 2017-05-10 09:44 | Nephrology Progress Note ---
Date of Encounter: 05/10/17 Time of Encounter: 09:30 - Assessment and Plan (1) STEFANY (acute kidney injury) Current Visit: Yes Status: Acute Additional information provided by patient. Had vascular surgery to right LE approximately 5 weeks ago involving the use of contrast. STEFANY in most likely in setting of contrast nephropathy related to recent contrast exposure with recent chronic NSAID use and GI losses contributing. Gastritis most likely related to chronic NSAID use. Creatinine improving 6.89. Hyperkalemia improved, K 4.2. Bicarb improved, will change IV fluids 0.9NS at 75 cc/hr. CT Abd/Pelvis-no acute findings. Renal US unremarkable. Reviewed with Dr. Ricardo, no immediate need for HD. Avoid nephrotoxins Subjective Interval history: Laying in bed, watching tv. States feeling better. Denies emesis. No new complaints. Additional info provided from patient; had vascular surgery to right LE approximately 5 weeks ago that involved use of contrast. Objective - Vital Signs Vital signs: Vital Signs Temp Pulse Resp BP Pulse Ox 05/10/17 07:30 98.0 F 67 16 92/55 92 05/10/17 03:43 97.5 F L 69 18 110/67 97 05/09/17 22:25 98.2 F 67 18 100/54 94 05/09/17 19:09 97.9 F 72 14 104/56 96 05/09/17 16:59 98.2 F 72 13 115/66 96 05/09/17 16:22 71 05/09/17 11:49 97.9 F 74 16 107/62 94 05/09/17 11:37 68 Intake and Output 05/09/17 05/10/17 05/10/17 23:59 07:59 15:59 Intake Total 1870 / 1870 620 / 620 240 / 240 Output Total 1125 / 1125 2049 / 2049 Balance 745 / 745 -1430 / -1430 240 / 240 Intake: IV Fluids 1150 / 1150 Sodium Bicarbonate 150 1150 / 1150 MEQ In Dextrose 5% 1,000 ML @ 100 mls/hr IVC . [id number] [facility] Rx#: [id number] Oral 720 / 720 620 / 620 240 / 240 Output: Urine 1125 / 1125 1750 / 1750 Catheter 300 / 300 Other: Meal Dinner Breakfast Percent of Meal Consumed 100% 75% Weight 120.837 kg - General Appearance General appearance: Present: well-developed, well-nourished, appears started age EENT: Present: mucous membranes moist Neck: Present: no JVD Respiratory: Present: clear Cardiology: Present: no edema, regular rate, regular rhythm Gastrointestinal: Present: normoactive bowel sounds, no tenderness Integumentary: Present: warm and dry Neurologic: Present: alert and oriented x3 Psychiatric: Present: mood/affect appropriate, cooperative - Lab 05/09/17 05:09 05/10/17 04:45 Most recent lab results Calcium 8.7 mg/dL (8.6-10.8) 05/10/17 04:45 Magnesium 1.7 mg/dL (1.6-2.6) 05/09/17 05:09 Urine Creatinine 58 mg/dL 05/09/17 11:30 Consult Discharge Plan - Plan Referrals: Jaiden Evans MD [Primary Care Provider] - 05/15/17 9:45 am ()
[2017-05-10] MEDS: 0.9 % Sodium Chloride 1,000 ML IVC SCH (11:37)
[2017-05-10] MEDS: *HR* OxyCODONE/APAP 10/325 TABLET PO PRN ×2 (15:08→21:08)
--- NOTE | 2017-05-10 15:52 | Internal Med Progress Note ---
Date of Encounter: 05/10/17 Time of Encounter: 14:45 - Assessment and plan (1) STEFANY (acute kidney injury) Current Visit: Yes Status: Acute Assessment and plan: Patient is noted to have acute on chronic renal failure. Nephrology on board, recommend conservative medical management, no indication for dialysis at this time. Serum creatinine and bicarbonate continues to improve. IV fluids changed to normal saline, bicarbonate drip discontinued. Baseline serum creatinine noted to be around 1.5 in January 2017, presented with serum creatinine of 12. acute renal failure is likely due to contrast-induced nephropathy, use of NSAIDs, FILIBERTO inhibitor, dehydration due to GI losses. Renal ultrasound shows no acute abnormality/hydronephrosis. (2) Hyperkalemia Current Visit: Yes Status: Resolved (3) Nausea & vomiting Current Visit: Yes Status: Resolved Qualifiers: Vomiting type: unspecified Vomiting Intractability: non-intractable Qualified Code(s): R11.2 - Nausea with vomiting, unspecified (4) Metabolic acidosis Current Visit: Yes Status: Acute Assessment and plan: Related to acute renal failure. Improved today. Discontinued IV bicarbonate drip per nephrology. (5) UTI (urinary tract infection) Current Visit: Yes Status: Ruled-out Assessment and plan: Urinalysis was abnormal but urine culture remains negative. We will discontinue antibiotics. Qualifiers: Urinary tract infection type: site unspecified Hematuria presence: without hematuria Qualified Code(s): N39.0 - Urinary tract infection, site not specified (6) Lumbar radiculopathy Current Visit: Yes Status: Chronic Assessment and plan: Patient has history of back surgery and chronic low back pain. Follows with pain management as an outpatient. We will change pain medications to oxycodone per his home regimen. (7) Essential hypertension Current Visit: Yes Status: Chronic (8) CKD (chronic kidney disease) stage 3, GFR 30-59 ml/min Current Visit: Yes Status: Chronic (9) Mixed hyperlipidemia Current Visit: Yes Status: Chronic (10) Tobacco abuse Current Visit: Yes Status: Chronic (11) PAD (peripheral artery disease) Current Visit: Yes Status: Chronic Assessment and plan: Follows with vascular surgery. Recently underwent right tibial endarterectomy. Continue aspirin and Plavix. - Subjective Interval history: Feels better; improved nausea and vomiting, tolerates diet; no abdominal pain or diarrhea; reports low back pain, not controlled with [place]; no difficulty breathing, chest pain; - Constitutional Vitals: Temp Pulse Resp BP Pulse Ox 97.7 F 66 16 95/54 91 05/10/17 11:37 05/10/17 12:05 05/10/17 11:37 05/10/17 11:37 05/10/17 11:37 General appearance: Present: cooperative, A&O X 3, obese, answers questions appropriately - Respiratory Respiratory exam: Present: CTAB. Absent: accessory muscle use, rales, rhonchi, wheezes - Cardiovascular Cardiovascular exam: Present: RRR, +S1, +S2. Absent: diastolic murmur, gallop, rubs, systolic murmur - GI/Abdominal GI/Abdominal exam: Present: normal bowel sounds, soft, no peritoneal signs. Absent: distended, tenderness Internal Medicine: Result - Labs CBC & Chem 7: 05/09/17 05:09 05/10/17 04:45 Labs: BMP 05/10/17 04:45 Sodium 141 Potassium 4.2 Chloride 103 Carbon Dioxide 25 BUN 72 H Creatinine 6.89 H Glucose 106 H Calcium 8.7 - ABG Interpretation ABG results: PT/INR, D-dimer PT 10.2 Seconds (9.4-12.1) 05/09/17 05:09 Consult Discharge Plan - Plan Referrals: Jaiden Evans MD [Primary Care Provider] - 05/15/17 9:45 am ()
[2017-05-11] MEDS: 0.9 % Sodium Chloride 1,000 ML IVC SCH ×2 (02:40→16:32)
[2017-05-11] MEDS: *HR* OxyCODONE/APAP 10/325 TABLET PO PRN ×4 (03:38→21:36)
[2017-05-11 05:40] LABS: Calcium 8.7 mg/dL (8.6-10.8); Magnesium 1.2 mg/dL (1.6-2.6); Phosphorous 6.2 mg/dL (2.3-4.7); Potassium 4.8 mEq/L (3.5-4.5)
[2017-05-11] MEDS: Nicotine 14 MG PATCH.TD24 TD SCH (08:01)
[2017-05-11] MEDS: Aspirin 81 MG TAB.CHEW PO SCH (08:01)
[2017-05-11] MEDS: *HR* Heparin 5,000 UNIT/ML VIAL SQ SCH ×2 (08:03→19:44)
--- NOTE | 2017-05-11 08:14 | Nephrology Progress Note ---
Date of Encounter: 05/11/17 Time of Encounter: 08:12 - Assessment and Plan (1) STEFANY (acute kidney injury) Current Visit: Yes Status: Acute Patient has a clinical picture of acute kidney injury. Potential etiologies include use of iqtq-evz-hfyfjfz nonsteroidal anti-inflammatory agents and/or possibly atheroembolic renal disease related to vascular procedure done in February. The patient's renal function continues to improve. At this point dialysis is not indicated. We will continue to monitor. (2) Atherosclerosis of [place] arteries of extremities with intermittent claudication, bilateral legs Current Visit: No Status: Chronic Subjective Interval history: Patient continues to complain of diffuse pain described as muscular or cramping pain. From a renal perspective he continues to improve. Urine output is excellent. Vital signs are stable. Objective - Vital Signs Vital signs: Vital Signs Temp Pulse Resp BP Pulse Ox 05/11/17 07:30 97.9 F 65 16 96/55 93 05/11/17 05:10 97.8 F 62 16 108/68 94 05/11/17 00:05 97.7 F 60 18 104/63 94 05/10/17 20:38 97.8 F 67 16 115/72 95 05/10/17 16:00 65 05/10/17 15:42 97.9 F 68 16 100/63 92 05/10/17 12:05 66 05/10/17 11:37 97.7 F 63 16 95/54 91 05/10/17 09:00 64 Intake and Output 05/10/17 05/11/17 05/11/17 23:59 07:59 15:59 Intake Total 480 / 480 1500 / 1500 Output Total 1765 / 1765 1500 / 1500 Balance -1285 / -1285 0 / 0 Intake: IV Fluids 1000 / 1000 0.9 % Sodium Chloride 1, 1000 / 1000 000 ML @ 75 mls/hr IVC . [id number] [facility] Rx#: [id number] Oral 480 / 480 500 / 500 Output: Urine 1765 / 1765 1500 / 1500 Other: Meal Dinner Percent of Meal Consumed 75% Weight 112.633 kg Patient Weight 05/11/17 23:59 Weight 112.633 kg - General Appearance Exam: Patient is alert and oriented. He is in no acute distress. Lungs essentially clear to auscultation. Heart regular rate and rhythm. Abdomen is benign. There is no peripheral edema. - Lab 08/24/17 05:09 05/11/17 05:02 Most recent lab results Calcium 8.7 mg/dL (8.6-10.8) 05/11/17 05:02 Phosphorus 6.2 mg/dL (2.3-4.7) H 05/11/17 05:02 Magnesium 1.2 mg/dL (1.6-2.6) L 05/11/17 05:02 Urine Creatinine 58 mg/dL 05/09/17 11:30 Consult Discharge Plan - Plan Referrals: Jaiden Evans MD [Primary Care Provider] - 05/15/17 9:45 am ()
[2017-05-11] MEDS ORDERED: Magnesium Sulfate 2 GM in D5% in Water 100 ML IVPB ONE (10:48)
--- NOTE | 2017-05-11 13:35 | Internal Med Progress Note ---
Date of Encounter: 05/11/17 Time of Encounter: 10:50 - Assessment and plan (1) STEFANY (acute kidney injury) Current Visit: Yes Status: Acute Assessment and plan: Patient is noted to have acute on chronic renal failure. Nephrology on board, recommend conservative medical management, no indication for dialysis at this time. Serum creatinine and bicarbonate continues to improve. Continue IV fluids. Baseline serum creatinine noted to be around 1.5 in January 2017, presented with serum creatinine of 12. acute renal failure is likely due to contrast-induced nephropathy, use of NSAIDs, FILIBERTO inhibitor, dehydration due to GI losses. Renal ultrasound shows no acute abnormality/hydronephrosis. (2) Hyperkalemia Current Visit: Yes Status: Resolved (3) Nausea & vomiting Current Visit: Yes Status: Resolved Qualifiers: Vomiting type: unspecified Vomiting Intractability: non-intractable Qualified Code(s): R11.2 - Nausea with vomiting, unspecified (4) Metabolic acidosis Current Visit: Yes Status: Acute Assessment and plan: Related to acute renal failure. Improved. (5) UTI (urinary tract infection) Current Visit: Yes Status: Ruled-out Qualifiers: Urinary tract infection type: site unspecified Hematuria presence: without hematuria Qualified Code(s): N39.0 - Urinary tract infection, site not specified (6) Lumbar radiculopathy Current Visit: Yes Status: Chronic Assessment and plan: Patient has history of back surgery and chronic low back pain. Follows with pain management as an outpatient. Continue oxycodone per his home regimen. (7) Essential hypertension Current Visit: Yes Status: Chronic (8) CKD (chronic kidney disease) stage 3, GFR 30-59 ml/min Current Visit: Yes Status: Chronic (9) Mixed hyperlipidemia Current Visit: Yes Status: Chronic (10) Tobacco abuse Current Visit: Yes Status: Chronic (11) PAD (peripheral artery disease) Current Visit: Yes Status: Chronic - Subjective Interval history: Denies new complaints; noted to be drowsy today, did not sleep well last night; no chest pain, dyspnea, leg swelling; no nausea, vomiting; - Constitutional Vitals: Temp Pulse Resp BP Pulse Ox 97.9 F 65 18 94/57 92 05/11/17 11:24 05/11/17 11:24 05/11/17 11:24 05/11/17 11:24 05/11/17 11:24 General appearance: Present: cooperative, A&O X 3, obese, answers questions appropriately - Respiratory Respiratory exam: Present: CTAB. Absent: accessory muscle use, rales, rhonchi, wheezes - Cardiovascular Cardiovascular exam: Present: RRR, +S1, +S2. Absent: diastolic murmur, gallop, rubs, systolic murmur - GI/Abdominal GI/Abdominal exam: Present: normal bowel sounds, soft, no peritoneal signs. Absent: distended, tenderness Internal Medicine: Result - Labs CBC & Chem 7: 05/09/17 05:09 05/11/17 05:02 Labs: BMP 05/11/17 05:02 Sodium 140 Potassium 4.8 H Chloride 107 Carbon Dioxide 23 BUN 53 H D Creatinine 5.40 H Glucose 93 Calcium 8.7 - ABG Interpretation ABG results: PT/INR, D-dimer PT 10.2 Seconds (9.4-12.1) 05/09/17 05:09 Consult Discharge Plan - Plan Referrals: Jaiden Evans MD [Primary Care Provider] - 05/15/17 9:45 am ()
[2017-05-12] MEDS: *HR* OxyCODONE/APAP 10/325 TABLET PO PRN ×4 (04:04→22:00)
[2017-05-12 05:35] LABS: Alanine Aminotransferase 10 Units/L (0-55); Albumin 2.7 g/dL (3.5-5.0); Albumin/Globulin Ratio 0.7 (1.1-2.2); Alkaline Phosphatase 100 Units/L (38-126); Aspartate Amino Transferase 8 Units/L (5-34); BUN/Creatinine Ratio 10 (6-26); Carbon Dioxide 19 mEq/L (19-29); Chloride 109 mEq/L (98-109); Globulin 3.8 g/dL (2.4-3.5); Glucose 125 mg/dL (70-99); Osmolality,Calculated 300 (280-300); Potassium 4.4 mEq/L (3.5-4.5); Sodium 139 mEq/L (136-145); Total Protein 6.5 g/dL (6.0-8.3); eGFR For African Americans 19 (> 60); eGFR For Non-African Americans 16 (> 60)
[2017-05-12 05:37] LABS: Bilirubin,Total < 0.3 mg/dL (0.2-1.2); Blood Urea Nitrogen 41 mg/dL (8-26)
[2017-05-12] MEDS: 0.9 % Sodium Chloride 1,000 ML IVC SCH ×2 (06:04→19:34)
--- NOTE | 2017-05-12 07:40 | Nephrology Progress Note ---
Date of Encounter: 05/12/17 Time of Encounter: 07:38 - Assessment and Plan (1) STEFANY (acute kidney injury) Current Visit: Yes Status: Acute Patient has a clinical picture of acute kidney injury. Potential etiologies include use of oqhn-xdu-shxospd nonsteroidal anti-inflammatory agents and/or possibly atheroembolic renal disease related to vascular procedure done in February. The patient's renal function continues to improve on a daily basis. We will continue to monitor his renal function. No indication for acute dialysis. He needs to avoid all nonsteroidal anti-inflammatory agents indefinitely. (2) Atherosclerosis of [place] arteries of extremities with intermittent claudication, bilateral legs Current Visit: No Status: Chronic Subjective Interval history: The patient voices no new complaints. He continues to experience back pain. Thisl is a chronic issue for this patient. From a Renal perspective is renal function continues to improve on a daily basis. Urine output is excellent. Objective - Vital Signs Vital signs: Vital Signs Temp Pulse Resp BP Pulse Ox 05/12/17 07:11 98.2 F 61 18 97/57 94 05/12/17 04:04 64 05/12/17 03:56 98.3 F 64 18 108/63 96 05/11/17 23:55 70 05/11/17 23:44 98.0 F 65 14 114/64 94 05/11/17 19:40 74 05/11/17 19:18 97.9 F 67 16 117/70 94 05/11/17 16:50 97.8 F 65 18 106/65 93 05/11/17 15:00 59 05/11/17 11:24 97.9 F 65 18 94/57 92 05/11/17 11:15 67 05/11/17 07:55 62 Intake and Output 05/11/17 05/11/17 05/12/17 15:59 23:59 07:59 Intake Total 480 / 480 1690 / 1690 1500 / 1500 Output Total 1775 / 1775 1400 / 1400 1000 / 1000 Balance -1295 / -1295 290 / 290 500 / 500 Intake: IV Fluids 1000 / 1000 1000 / 1000 0.9 % Sodium Chloride 1, 1000 / 1000 1000 / 1000 000 ML @ 75 mls/hr IVC . [id number] [facility] Rx#: [id number] Oral 480 / 480 690 / 690 500 / 500 Output: Urine 1775 / 1775 1400 / 1400 1000 / 1000 Other: Meal Lunch Dinner Percent of Meal Consumed 100% 100% # Voids 1 Weight 111.811 kg Patient Weight 05/12/17 23:59 Weight 111.811 kg - General Appearance Exam: Patient is alert and oriented. He is in no acute distress. Lungs clear to auscultation. Heart regular rate and rhythm. Abdomen is benign. There is no peripheral edema. - Lab 05/09/17 05:09 05/12/17 05:02 Most recent lab results Calcium 9.0 mg/dL (8.6-10.8) 05/12/17 05:02 Phosphorus 6.2 mg/dL (2.3-4.7) H 05/11/17 05:02 Magnesium 1.2 mg/dL (1.6-2.6) L 05/11/17 05:02 Urine Creatinine 58 mg/dL 05/09/17 11:30 Consult Discharge Plan - Plan Referrals: aJiden Evans MD [Primary Care Provider] - 05/15/17 9:45 am ()
[2017-05-12] MEDS: Aspirin 81 MG TAB.CHEW PO SCH (08:58)
[2017-05-12] MEDS: *HR* Heparin 5,000 UNIT/ML VIAL SQ SCH ×3 (08:58→19:35)
[2017-05-12] MEDS: Nicotine 14 MG PATCH.TD24 TD SCH (08:58)
--- NOTE | 2017-05-12 09:36 | Internal Med Progress Note ---
Date of Encounter: 05/12/17 Time of Encounter: 09:35 - Assessment and plan (1) STEFANY (acute kidney injury) Current Visit: Yes Status: Acute Assessment and plan: Patient is noted to have acute on chronic renal failure. Nephrology on board, recommend conservative medical management, no indication for dialysis at this time. Serum creatinine and bicarbonate continues to improve. Continue IV fluids. Baseline serum creatinine noted to be around 1.5 in January 2017, presented with serum creatinine of 12. acute renal failure is likely due to contrast-induced nephropathy, use of NSAIDs, FILIBERTO inhibitor, dehydration due to GI losses. Renal ultrasound shows no acute abnormality/hydronephrosis. (2) Hyperkalemia Current Visit: Yes Status: Resolved (3) Nausea & vomiting Current Visit: Yes Status: Resolved Qualifiers: Vomiting type: unspecified Vomiting Intractability: non-intractable Qualified Code(s): R11.2 - Nausea with vomiting, unspecified (4) Metabolic acidosis Current Visit: Yes Status: Acute Assessment and plan: Related to acute renal failure. Improved. (5) UTI (urinary tract infection) Current Visit: Yes Status: Ruled-out Qualifiers: Urinary tract infection type: site unspecified Hematuria presence: without hematuria Qualified Code(s): N39.0 - Urinary tract infection, site not specified (6) Lumbar radiculopathy Current Visit: Yes Status: Chronic Assessment and plan: Patient has history of back surgery and chronic low back pain. Follows with pain management as an outpatient. Continue oxycodone per his home regimen. (7) Essential hypertension Current Visit: Yes Status: Chronic Assessment and plan: Hold FILIBERTO inhibitor for now. Blood pressure noted to be well controlled. (8) CKD (chronic kidney disease) stage 3, GFR 30-59 ml/min Current Visit: Yes Status: Chronic (9) Mixed hyperlipidemia Current Visit: Yes Status: Chronic (10) Tobacco abuse Current Visit: Yes Status: Chronic (11) PAD (peripheral artery disease) Current Visit: Yes Status: Chronic Assessment and plan: Follows with vascular surgery. Recently underwent right tibial endarterectomy. Continue aspirin and Plavix. - Subjective Interval history: Denies new complaints; no chest pain, dyspnea, leg swelling; no nausea, vomiting ; wants to be discharged tomorrow as he has Pain Management clinic appointment; - Constitutional Vitals: Temp Pulse Resp BP Pulse Ox 98.2 F 64 18 97/57 94 08/27/17 07:11 05/12/17 09:06 05/12/17 07:11 05/12/17 07:11 05/12/17 07:11 General appearance: Present: cooperative, A&O X 3, obese, answers questions appropriately - Respiratory Respiratory exam: Present: CTAB. Absent: accessory muscle use, rales, rhonchi, wheezes - Cardiovascular Cardiovascular exam: Present: RRR, +S1, +S2. Absent: diastolic murmur, gallop, rubs, systolic murmur - GI/Abdominal GI/Abdominal exam: Present: normal bowel sounds, soft, no peritoneal signs. Absent: distended, tenderness - Extremities Exam Extremities exam: Present: full ROM, warm, radial pulses palpable and symmetrical. Absent: calf tenderness, cyanotic, pedal edema Internal Medicine: Result - Labs CBC & Chem 7: 05/09/17 05:09 05/12/17 05:02 Labs: BMP 05/12/17 05:02 Sodium 139 Potassium 4.4 Chloride 109 Carbon Dioxide 19 BUN 41 H D Creatinine 4.04 H Glucose 125 H Calcium 9.0 Liver Function 05/12/17 Range/Units 05:02 Total Bilirubin < 0.3 (0.2-1.2) mg/dL AST 8 (5-34) Units/L ALT 10 (0-55) Units/L Alkaline Phosphatase 100 (38-126) Units/L Albumin 2.7 L (3.5-5.0) g/dL - ABG Interpretation ABG results: PT/INR, D-dimer PT 10.2 Seconds (9.4-12.1) 05/09/17 05:09 Consult Discharge Plan - Plan Referrals: Jaiden Evans MD [Primary Care Provider] - 05/15/17 9:45 am ()
[2017-05-13] MEDS: *HR* OxyCODONE/APAP 10/325 TABLET PO PRN ×2 (04:26→10:37)
[2017-05-13 05:22] LABS: Alanine Aminotransferase 14 Units/L (0-55); Albumin 2.8 g/dL (3.5-5.0); Albumin/Globulin Ratio 0.7 (1.1-2.2); Alkaline Phosphatase 111 Units/L (38-126); Aspartate Amino Transferase 12 Units/L (5-34); BUN/Creatinine Ratio 11 (6-26); Blood Urea Nitrogen 34 mg/dL (8-26); Calcium 9.5 mg/dL (8.6-10.8); Carbon Dioxide 19 mEq/L (19-29); Chloride 111 mEq/L (98-109); Glucose 86 mg/dL (70-99); Osmolality,Calculated 293 (280-300); Potassium 4.9 mEq/L (3.5-4.5); Sodium 138 mEq/L (136-145); Total Protein 6.8 g/dL (6.0-8.3); eGFR For African Americans 26 (> 60); eGFR For Non-African Americans 21 (> 60)
[2017-05-13 05:23] LABS: Bilirubin,Total < 0.3 mg/dL (0.2-1.2)
[2017-05-13 07:19] VITALS: BP 108/66
[2017-05-13] MEDS: *HR* Heparin 5,000 UNIT/ML VIAL SQ SCH (08:13)
[2017-05-13] MEDS: 0.9 % Sodium Chloride 1,000 ML IVC SCH (08:14)
[2017-05-13] MEDS: Aspirin 81 MG TAB.CHEW PO SCH (08:16)
[2017-05-13] MEDS: Nicotine 14 MG PATCH.TD24 TD SCH (08:17)
--- NOTE | 2017-05-13 08:31 | Nephrology Progress Note ---
Date of Encounter: 05/13/17 Time of Encounter: 08:30 - Assessment and Plan (1) STEFANY (acute kidney injury) Current Visit: Yes Status: Acute Patient has a clinical picture of acute kidney injury. Potential etiologies include use of pyms-mwu-uwmxwci nonsteroidal anti-inflammatory agents and/or possibly atheroembolic renal disease related to vascular procedure done in February. The patient's renal function continues to improve on a daily basis. We will continue to monitor his renal function. No indication for acute dialysis. He needs to avoid all nonsteroidal anti-inflammatory agents indefinitely. From a renal perspective he can probably be discharged home today and we can follow him up in the office in several weeks. (2) Atherosclerosis of [place] arteries of extremities with intermittent claudication, bilateral legs Current Visit: No Status: Chronic Subjective Interval history: Patient voices no new complaints. From a renal perspective his renal function continues to improve on a daily basis. C3 is normal. Urine output is excellent. Objective - Vital Signs Vital signs: Vital Signs Temp Pulse Resp BP Pulse Ox 05/13/17 08:15 61 05/13/17 07:15 98.0 F 61 18 108/66 97 05/13/17 04:26 60 05/13/17 04:05 97.6 F 60 18 105/71 98 05/13/17 00:15 61 05/12/17 23:52 98.0 F 64 16 102/55 97 05/12/17 19:50 98.1 F 66 16 103/65 97 05/12/17 19:30 71 05/12/17 16:09 97.4 F L 71 16 112/66 95 05/12/17 15:00 59 05/12/17 11:35 65 05/12/17 11:30 98.3 F 69 18 103/59 95 05/12/17 09:06 64 Intake and Output 05/12/17 05/13/17 05/13/17 23:59 07:59 15:59 Intake Total 2455 / 2455 400 / 400 1000 / 1000 Output Total 1400 / 1400 1650 / 1650 400 / 400 Balance 1055 / 1055 -1250 / -1250 600 / 600 Intake: IV Fluids 1855 / 1855 1000 / 1000 0.9 % Sodium Chloride 1, 1855 / 1855 1000 / 1000 000 ML @ 75 mls/hr IVC . [id number] [facility] Rx#: [id number] Oral 600 / 600 400 / 400 0 / 0 Output: Urine 1400 / 1400 1650 / 1650 400 / 400 Other: Meal Dinner Percent of Meal Consumed 90% Weight 111.811 kg Patient Weight 05/13/17 23:59 Weight 111.811 kg - General Appearance Exam: Patient is alert and oriented. No acute distress. Lungs are auscultation. Heart regular rhythm. Abdomen is benign. There is no peripheral edema. - Lab 05/09/17 05:09 05/13/17 04:32 Most recent lab results Calcium 9.5 mg/dL (8.6-10.8) 05/13/17 04:32 Phosphorus 6.2 mg/dL (2.3-4.7) H 05/11/17 05:02 Magnesium 1.4 mg/dL (1.6-2.6) L 05/13/17 04:32 Urine Creatinine 58 mg/dL 05/09/17 11:30 Consult Discharge Plan - Plan Referrals: Jaiden Evans MD [Primary Care Provider] - 05/15/17 9:45 am ()
[2017-05-13] MEDS ORDERED: Magnesium Sulfate 2 GM in D5% in Water 100 ML IVPB ONE (10:34)
--- NOTE | 2017-05-13 11:19 | Discharge Summary ---
Date of Encounter: 05/13/17 Time of Encounter: 10:30 - Discharge Diagnosis (1) STEFANY (acute kidney injury) Priority: Primary Status: Acute (2) Hyperkalemia Priority: Primary Status: Resolved (3) Nausea & vomiting Priority: Primary Status: Resolved Qualifiers: Vomiting type: unspecified Vomiting Intractability: non-intractable Qualified Code(s): R11.2 - Nausea with vomiting, unspecified (4) Metabolic acidosis Priority: Primary Status: Resolved (5) Lumbar radiculopathy Priority: Secondary Status: Chronic (6) Essential hypertension Priority: Secondary Status: Chronic (7) CKD (chronic kidney disease) stage 3, GFR 30-59 ml/min Priority: Secondary Status: Chronic (8) Mixed hyperlipidemia Priority: Secondary Status: Chronic (9) Tobacco abuse Priority: Secondary Status: Chronic (10) PAD (peripheral artery disease) Priority: Secondary Status: Chronic - Discharge Medications Home Medications: Aspirin 81 mg PO DAILY 02/13/17 [History] Clopidogrel Bisulfate [Plavix] 75 mg PO DAILY #30 tablet 02/13/17 [Rx] Caffeine 400 mg PO BID 03/07/17 [History] Acetaminophen [Tylenol] 1,000 mg PO Q6H PRN #90 tablet 03/08/17 [Rx] Atorvastatin [Lipitor] 40 mg PO DAILY #30 05/13/17 [Rx] Gabapentin [Neurontin] 300 mg PO HS PRN #0 05/13/17 [Rx] Allergies/Adverse Reactions: 3 Allergy/AdvReac Type Severity Reaction Status Date / Time ketorolac [From Toradol] Allergy See Verified 03/07/17 07:27 Comments Date of admission: 05/08/17 12:18 Primary care physician: Jaiden Evans MD Discharging clinician: Eve Brown Anticipated date of discharge: 05/13/17 - Patient Status Disposition: Home, Self-Care Condition: Good Functional capacity at discharge: independent ambulation Overall status at discharge: patient is progressing back to baseline - Discharge Instructions Instructions: Acute Kidney Injury (GEN) Follow Up With: Jaiden Evans MD [Primary Care Provider] - 05/15/17 9:45 am () Harry Ricardo DO [Non-Partnered Physician] - 05/21/17 9:15 am (Please take Picture ID , Insurance cards, and med list to your appointment. Arrive 10mins early for your appointment.) - Diet and Activity Activity: increase activity as tolerated Diet: low fat, low cholesterol, low salt diet, other (renal diet) Hospital course: Mr. Samuel is a 52 year old male with the above medical problems, admitted with persistent nausea, vomiting, abdominal pain. He was noted to be in significant acute on chronic renal failure, likely due to NSAID use, with serum creatinine elevated up to 11, from a baseline of around 1.2. He also had associated hyperkalemia and metabolic acidosis. Nephrology was consulted and patient was maintained on bicarbonate drip and medical management for hyperkalemia. His renal function steadily improved, acidosis and hyperkalemia resolved and he felt much better. He is currently medically stable for discharge with outpatient Nephrology f/up. He was noted to be ACEI at home, which was held since admission, and since his BP has been stable off meds, he is recommended not to restart ACEI at this time. He was also counseled to abstain from the use of NSAIDs indefinitely as this is his second episode of acute renal failure secondary to NSAID use. - Time Spent with Patient Total time spent providing and/or coordinating discharge services: Greater than 30 minutes (40 min) - Constitutional Vitals: Temp Pulse Resp BP Pulse Ox 98.0 F 61 18 108/66 97 05/13/17 07:15 05/13/17 08:15 05/13/17 07:15 05/13/17 07:15 05/13/17 07:15 General appearance: Present: cooperative, A&O X 3, obese, answers questions appropriately - Respiratory Respiratory exam: Present: CTAB. Absent: accessory muscle use, rales, rhonchi, wheezes - Cardiovascular Cardiovascular exam: Present: RRR, +S1, +S2. Absent: diastolic murmur, gallop, rubs, systolic murmur
== END 2017-05-13 12:20 | disposition home or self-care (01) | DRG 683 ==
LOC: EMEROO 08:45 → 2NNU 12:18
PROVIDERS: ADMIT Nurse Practitioner Family; ATTEND Internal Medicine

== ENCOUNTER 2019-04-17 06:37 | Inpatient (IN) ==
[2019-04-17] MEDS ORDERED: CeFAZolin Syr 2,000MG/20 ML 2,000 MG/20 ML SYRINGE IVPB ONE (06:54)
[2019-04-17] MEDS ORDERED: Albuterol 2.5 MG/3 ML NEBULIZER IH ONE ×2 (06:54→07:46)
[2019-04-17] MEDS ORDERED: Ringers Solution, Lactated 1,000 ML IVC SCH (07:00)
[2019-04-17] MEDS ORDERED: Acetaminophen IV 1,000 MG/100 ML INFUS..BTL IVPB ONE (07:34)
--- NOTE | 2019-04-17 07:36 | Anesthesia Evaluation PreOp ---
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) Other Medical History: Renal (ckd) Anesthesia History: No Prior Anesthetic Complications Alcohol Use: none Drug use: none Medications and Allergies Caffeine 200 mg PO BID 03/07/17 [History] Cilostazol [Pletal] 100 mg PO BID #60 tablet 11/20/17 [Rx] Clopidogrel Bisulfate [Plavix] 75 mg PO DAILY 04/17/19 [History] Gabapentin [Neurontin] 300 mg PO HS 04/17/19 [History] OxyCODONE/APAP 10/325 [Percocet 10/325 MG] 1 tab PO Q6HR PRN 04/17/19 [History] Oxycodone HCl [Oxycontin] 10 mg PO Q8H 04/17/19 [History] Allergy/AdvReac Type Severity Reaction Status Date / Time ketorolac [From Toradol] Allergy See Verified 10/11/18 08:43 Comments Iodinated Contrast- Oral and AdvReac See Verified 10/11/18 08:43 IV Dye Comments - Meds/Allergy Pre-op Review Medications Reviewed: Yes Allergies Reviewed: Yes Beta Blockers on Current Med List: No Anesthesia Results - Labs Laboratory Tests 03/25/19 03/25/19 03/25/19 13:03 13:03 13:03 WBC 13.2 H Hgb 17.1 H Hct 51.5 H Plt Count 280 PT 10.8 INR 1.0 APTT 33.4 Sodium 137 Potassium 4.1 Chloride 106 Carbon Dioxide 25 BUN 19 Creatinine 1.32 H Est GFR ( Amer) > 60 Est GFR (Non-Af Amer) 56 L BUN/Creatinine Ratio 14 Glucose 93 - Imaging EKG: report reviewed, image reviewed (SINUS RHYTHM RIGHT AXIS DEVIATION) Anesthesia Exam Last Vital Signs Temp 97.8 F 04/17/19 06:56 Pulse 75 04/17/19 06:56 Resp 18 04/17/19 07:41 BP 124/80 04/17/19 07:41 Pulse Ox 92 04/17/19 07:41 Weight: 107 kg NPO (# of Hours): > 8 hrs - HEENT Pupil (Motor): Pupils equal, EOMI Mallampati: III Oral Opening: Greater than 3 - 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
[2019-04-17] MEDS ORDERED: NiCARdipine 2.5 MG/10 ML Syringe IVPB ONE (07:41)
[2019-04-17] MEDS ORDERED: Protamine Sulfate 50 MG/5 ML VIAL IVP ONE (07:41)
[2019-04-17] MEDS ORDERED: *HR* OxyCODONE Immed Rel 5 MG TABLET PO PRN (07:46)
[2019-04-17] MEDS ORDERED: *HR* Promethazine 25 MG/ML VIAL IVP PRN (07:46)
[2019-04-17] MEDS ORDERED: *HR* FentaNYL (PF) 100 MCG/2 ML VIAL IVP PRN (07:46)
[2019-04-17] MEDS ORDERED: Heparin 1,000 UNITS/500 mL 1,000 ML ONE (07:49)
[2019-04-17] MEDS ORDERED: Isovue-300 50 ML VIAL ONE (07:49)
--- NOTE | 2019-04-17 08:04 | History & Physical Report ---
Date of Encounter: 04/17/19 Time of Encounter: 07:58 24 Hour HP Update - Instructions Instructions: If the History and Physical is less than 30 days old and was completed prior to A.M. admission and or procedure and has NOT been updated on calendar day of procedure please complete this update prior to performing procedure. - Update Patient reports changes in Medical Condition: No Changes in examination, assessment, or condition: No Changes in Medication: No Preop tests/diagnostics Reviewed: Yes Surgery Remains Indicated: Yes Consent for Planned Operative Procedure(s) Verified: Yes - Pre-Operative Checklist Preoperative Checklist Indicated: Yes Prophylactic Antibiotic Ordered: Yes (vancomycin due to risk of MRSA) Home Medications Include Beta Jacy: No Beta Jacy Taken Today (Day of Surgery): No Beta Jacy Taken Yesterday (Day Prior to Surgery): No Is VTE Prophylaxis Indicated?: Yes
[2019-04-17] MEDS ORDERED: Vancomycin 1,000 MG, Sodium Chloride IRRigation 1,000 ML IR ONE (08:15)
[2019-04-17] MEDS ORDERED: Hydrocortisone Sodium Succ 100 MG/2 ML VIAL ONE (08:27)
[2019-04-17] MEDS ORDERED: MethylPREDNISolone 40 MG/ML VIAL ONE (08:29)
[2019-04-17] MEDS ORDERED: Calcium Gluconate 1,000 MG/10 ML VIAL ONE (08:44)
[2019-04-17] MEDS ORDERED: *HR* FentaNYL (PF) 100 MCG/2 ML VIAL ONE ×3 (09:00→10:30)
[2019-04-17] MEDS ORDERED: Lidocaine HCL 4 ML Topical Solution (Laryng-O-Jet Kit Sterile Pak) TP ONE (09:03)
[2019-04-17] MEDS ORDERED: *HR* PHENYLEPHRINE 1,000 MCG/10 ML SYRINGE IVP ONE (09:42)
[2019-04-17] MEDS ORDERED: *HR* Heparin 5,000 UNIT/ML VIAL ONE ×2 (09:49→10:03)
[2019-04-17] MEDS ORDERED: Lidocaine -MPF 2% 2 ML VIAL ONE (09:49)
[2019-04-17] MEDS ORDERED: Dexamethasone 4 MG/ML VIAL ONE (09:49)
[2019-04-17] MEDS ORDERED: *HR* Rocuronium Bromide 50 MG/5 ML VIAL ONE (09:49)
[2019-04-17] MEDS ORDERED: Ondansetron 4 MG/2 ML VIAL ONE (09:49)
[2019-04-17] MEDS ORDERED: *HR* Midazolam HCl 2 MG/2 ML VIAL ONE (09:49)
[2019-04-17] MEDS ORDERED: *HR* Propofol 200 MG/20 ML VIAL IVP ONE (09:49)
[2019-04-17] MEDS ORDERED: Neostigmine Methylsulfate 3 MG/3 ML SYRINGE ONE (10:26)
--- NOTE | 2019-04-17 11:25 | Operative Note ---
Date of procedure: 04/17/19 Pre-op diagnosis: Peripheral vascular disease with disabling claudication Post-op diagnosis: same Procedure: 1. Abdominal aortogram. 2. Left common iliac artery 7 x 57 mm stent placement. 3. Left lower extremity thrombectomy with 5-Czech Tara embolectomy catheter. 4. Left iliofemoral endarterectomy with bovine pericardial patch angioplasty. Complications: None Anesthesia: GETA Surgeon: Albino Olvera Was there an surgeon's assistant present: No Estimated blood loss (cc): 100 Specimen: Left lower extremity thrombus and plaque Condition: stable Disposition: PACU Procedure in Detail: 1. Abdominal aortogram. 2. Left common iliac artery 7 x 57 mm stent placement. 3. Left lower extremity thrombectomy with 5-Czech Tara embolectomy catheter. 4. Left iliofemoral endarterectomy with bovine pericardial patch angioplasty. Indications: The patient is a 54-year-old male with a history of peripheral vascular disease with disabling claudication, essential hypertension, mixed hyperlipidemia, chronic kidney disease stage III and tobacco abuse. The patient underwent a left iliac stent several years ago. Patient was doing well until recently when he presented to the emergency room with acute on chronic disabling claudication of the left lower extremity. The patient underwent angiogram and was found to have a left iliac artery occlusion. Revascularization was recommended to alleviate his symptoms. Procedure: The patient was identified in the preoperative area. The risks, benefits, and alternatives of the procedure were discussed. All questions were answered. The patient was taken to the operating room and placed in supine position on the operating room table. After the induction of general endotracheal anesthesia, he was cleaned and draped in normal sterile fashion. An oblique incision was made over his left groin sharply. Hemostasis was obtained with electrocautery. Through a process of blunt, sharp, and electrocautery dissection, the left distal external iliac artery and femoral arteries were dissected circumferentially and surrounded with vessel loops. The patient received 5000 units of intravenous heparin and additional heparin throughout the procedure to maintain adequate anticoagulation. A longitudinal arteriotomy was made in the left common femoral artery and extended into the distal external iliac artery proximally. Minimal antegrade flow was noted. A 6-Czech sheath was advanced over a wire into the external iliac artery. A wire was advanced the aorta the catheter was passed over the wire into the aorta. An angiogram revealed occlusion of the left common iliac artery stent. A 7 x 57 mm stent was advanced over the wire and the stent was deployed in the usual fashion. Completion angiogram revealed adequate resolution of the left common iliac artery occlusion. However a persistent occlusion was noted within the left external iliac artery. A 5-Czech Tara over the wire catheter was advanced into the proximal external iliac artery stent. It was withdrawn and a large thrombus was retrieved. Additional passes resulted in no additional thrombus being retrieved. The balloon, wire and sheath were removed. Persistent slow flow was noted through the external iliac artery. Extensive external iliac common femoral and deep femoral artery plaque was identified. Using a dental freer a left iliofemoral endarterectomy were then performed. The distal endpoints was inspected and no elevated flap was noted. The lumen was flushed with heparinized saline. A bovine pericardial patch was cut to fit the left iliofemoral arteriotomy. The patch was then sutured in place with a running 6-0 Prolene. Prior to completing the patch angioplasty each vessel was flushed and then reoccluded. Heparinized was infused into the lumen. The patch was completed and flow was restored in the left femoral vessels. Thrombin and Gelfoam was used to aid in hemostasis. Polyphasic signals were noted in the bilateral common, deep and superficial femoral arteries. The wounds were irrigated with antibiotic-containing saline. Platelet rich and platelet poor plasma were infused into the wounds. Meticulous hemostasis was obtained throughout the wound with electrocautery. Wounds were reapproximated with layers of 2-0 and 3-0 Vicryl. Skin was reapproximated with 3-0 Monocryl. Sterile dressing was applied. The patient was extubated and taken to recovery room in stable condition.o recovery room in stable condition.
--- NOTE | 2019-04-17 11:26 | Anesthesia Evaluation Post Op ---
Date of Encounter: 04/17/19 Time of Encounter: 11:25 - Vital Signs Vital Signs: Selected Entries 04/17/19 11:00 04/17/19 11:10 Temperature 98.2 F Pulse Rate 66 Respiratory Rate 16 Blood Pressure 122/72 O2 Sat by Pulse Oximetry 93 - Lungs Lungs: Clear Ascult./Percussion - Airway Airway: Non-obstructed - Cardiovascular Regular Rate - Mental Status Mental Status: Alert & Oriented, Answers Appropriately - Nausea Vomiting Nausea Vomiting: Not Present - Hydration Hydration: Ice chips, Shaw catheter - Discharge PostOp Status: Transfer Patient to floor
--- NOTE | 2019-04-17 11:28 | Discharge Summary ---
Orders not resulted at time of discharge: Pending orders 04/17/19 11:05 Surgical Pathology [PTH] Routine Date of Encounter: 04/18/19 Time of Encounter: 10:44 (Seen by Dr. Rivera) - Discharge Diagnosis (1) Atherosclerosis of [place] arteries of extremities with intermittent claudi cation, bilateral legs Priority: Primary Status: Chronic Comments: The patient is postoperative day #1 after left iliac stent, left iliac thrombectomy and left iliofemoral endarterectomy. (2) CKD (chronic kidney disease) stage 3, GFR 30-59 ml/min Priority: Secondary Status: Chronic (3) HLD (hyperlipidemia) Priority: Secondary Status: Chronic Qualifiers: Hyperlipidemia type: mixed hyperlipidemia Qualified Code(s): E78.2 - Mixed hyperlipidemia (4) HTN (hypertension) Priority: Secondary Status: Chronic Qualifiers: Hypertension type: essential hypertension Qualified Code(s): I10 - [place] l (primary) hypertension (5) Tobacco abuse Priority: Secondary Status: Chronic - Hospital Course Hospital course: Mr. Samuel is a 54 year old male with history of peripheral vascular disease with disabling claudication, hypertension, hyperlipidemia, chronic kidney disease stage III and tobacco abuse. The patient was admitted for acute on chronic left lower extremity ischemia. He underwent a left common iliac stent a left external iliac thrombectomy and a left iliofemoral endarterectomy. Tolerated the procedure. A postoperative day #1 he was discharged in stable condition without complications. - Time Spent with Patient Total time spent providing and/or coordinating discharge services: - Discharge Medications Prescriptions: Continued Caffeine 400 mg PO BID Cilostazol [Pletal] 100 mg PO BID #60 tablet Clopidogrel Bisulfate [Plavix] 75 mg PO DAILY Gabapentin [Neurontin] 300 mg PO HS OxyCODONE/APAP 10/325 [Percocet 10/325 MG] 1 tab PO Q6HR PRN PRN Reason: Mild To Moderate Pain Oxycodone HCl [Oxycontin] 10 mg PO Q8H Home Medications: Caffeine 400 mg PO BID 03/07/17 [History] Cilostazol [Pletal] 100 mg PO BID #60 tablet 11/20/17 [Rx] Clopidogrel Bisulfate [Plavix] 75 mg PO DAILY 04/17/19 [History] Gabapentin [Neurontin] 300 mg PO HS 04/17/19 [History] OxyCODONE/APAP 10/325 [Percocet 10/325 MG] 1 tab PO Q6HR PRN 04/17/19 [History] Oxycodone HCl [Oxycontin] 10 mg PO Q8H 04/17/19 [History] Allergies/Adverse Reactions: Allergy/AdvReac Type Severity Reaction Status Date / Time ketorolac [From Toradol] Allergy See Verified 10/11/18 08:43 Comments Iodinated Contrast- Oral and AdvReac See Verified 10/11/18 08:43 IV Dye Comments Primary care physician: Jaiden Evans MD Procedure(s) Performed: Left iliac stent, left lower extremity thrombectomy, left iliofemoral endarterectomy. Discharging clinician: Albino Olvera Anticipated date of discharge: 04/18/19 Exam Vital Signs, Last 4 Hours Temp Pulse Resp BP Pulse Ox 04/17/19 11:10 66 16 122/72 93 04/17/19 11:00 98.2 F 60 12 136/80 94 04/17/19 07:41 18 124/80 92 Exam: See Dr. Rivera's note for exam. - Patient Status Disposition: Home, Self-Care Condition: Good Functional capacity at discharge: independent ambulation - Discharge Instructions Instructions: Peripheral Vascular Stent Placement (DC), Remote Superficial Femoral Artery Endarterectomy (DC) Follow Up With: Jaiden Evans MD [Primary Care Provider] - (Office will call you with followup appointment ) Albino Olvera MD [Partnered Physician] - (Office will call from followup appointment. ) Additional Instructions: May remove bandage and shower on 04/19/2019. Wash wound gently with soap and water only and pat to dry. Applied dry gauze to wounds daily for 7 days. No tub baths or swimming until 05/20/2019. Call Dr. Olvera at [phone] with questions or concerns. - Diet and Activity Activity: increase activity as tolerated Diet: advance to your usual diet
[2019-04-17] MEDS ORDERED: *HR* Labetalol 20 MG/4 ML SYRINGE IVP PRN (11:46)
[2019-04-17] MEDS ORDERED: Ondansetron 4 MG/2 ML VIAL IVP PRN (11:46)
[2019-04-17] MEDS ORDERED: *HR* OxyCODONE/APAP 10/325 TABLET PO PRN (11:46)
[2019-04-17] MEDS ORDERED: Naloxone 0.4 MG/ML INJ IVP PRN (11:46)
[2019-04-17] MEDS ORDERED: Acetaminophen 325 MG TABLET PO PRN (11:46)
[2019-04-17] MEDS ORDERED: *HR* OxyCODONE Immed Rel 5 MG TABLET PO SCH (12:00)
[2019-04-17] MEDS: *HR* Metoprolol 5 MG/5 ML VIAL IVP SCH ×3 (12:26→23:53)
[2019-04-17] MEDS: *HR* OxyCODONE ER (12 HR) 10 MG TABLET PO SCH ×2 (12:29→20:47)
[2019-04-17] MEDS: 0.9 % Sodium Chloride 1,000 ML IVC SCH (12:31)
[2019-04-17] MEDS: Nicotine 21 MG PATCH.TD24 TD SCH (12:47)
[2019-04-17] MEDS ORDERED: Gabapentin 300 MG CAPSULE PO SCH (21:00)
[2019-04-18 01:23] LABS: Basophils % 0.2 %; Hematocrit 45.3 % (37.5-50.1); Immature Granulocytes % 0.9 % (0-4); Lymphocytes # 1.7 K/mcL (0.6-4.6); Lymphocytes % 8.7 %; Mean Corpuscular HGB Conc 33.1 g/dL (31.6-35.5); Mean Corpuscular Hemoglobin 29.9 pg (28.0-33.3); Mean Corpuscular Volume 90.4 fL (83.0-100.0); Mean Platelet Volume 8.7 fL (9.4-12.4); Monocytes # 0.7 K/mcL (0.0-1.3); Monocytes % 3.6 %; Neutrophils # 16.6 K/mcL (1.6-8.9); Platelet Count 308 K/mcL (140-400); Red Blood Count 5.01 M/mcL (4.19-5.50); Red Cell Distribution Width 13.3 % (11.5-14.5); Segmented Neutrophils % 86.6 %; White Blood Count 19.2 K/mcL (4.3-11.1)
[2019-04-18 01:42] LABS: BUN/Creatinine Ratio 12 (6-26); Blood Urea Nitrogen 12 mg/dL (6-20); Calcium 8.5 mg/dL (8.6-10.3); Carbon Dioxide 22 mEq/L (23-29); Chloride 107 mEq/L (98-107); Glucose 147 mg/dL (70-105); Osmolality,Calculated 284 (280-300); Potassium 4.1 mEq/L (3.5-5.1); Sodium 136 mEq/L (136-145); eGFR For African Americans > 60 (> 60); eGFR For Non-African Americans > 60 (> 60)
[2019-04-18] MEDS: 0.9 % Sodium Chloride 1,000 ML IVC SCH (02:24)
[2019-04-18] MEDS: *HR* OxyCODONE ER (12 HR) 10 MG TABLET PO SCH (04:53)
[2019-04-18] MEDS: *HR* Metoprolol 5 MG/5 ML VIAL IVP SCH (04:58)
[2019-04-18] MEDS ORDERED: *HR* Heparin 5,000 UNIT/ML VIAL SQ SCH ×2 (06:00)
[2019-04-18] MEDS: Nicotine 21 MG PATCH.TD24 TD SCH (07:42)
[2019-04-18 07:59] VITALS: BP 122/87
--- NOTE | 2019-04-18 10:44 | Vascular/[facility] Progress Note ---
Date of Encounter: 04/18/19 Time of Encounter: 10:44 - Assessment and plan (1) Atherosclerosis of [place] arteries of extremities with intermittent claudication, bilateral legs Current Visit: No Status: Resolved DC home. follow up in 7-10 days. Antiplatelets, Statin - Subjective Interval history: Doing well no complaints. Vital Signs, Last 4 Hours Temp Pulse Resp BP 04/18/19 07:55 97.6 F 82 18 122/87 - Physical Examination General: Present: No Apparent Distress Cardiac: Present: Reg Rate and Rhythm, Normal S1 and S2, No Murmur Vascular: Present: Normal capillary refill, Other (Palpable left femoral pulse.) Skin: Present: No rashes noted on visualized skin Results 04/18/19 00:36 04/18/19 00:36 Lab Results, Last 24 hours 04/18/19 04/18/19 00:36 00:36 WBC 19.2 H Hgb 15.0 Hct 45.3 Plt Count 308 Sodium 136 Potassium 4.1 Chloride 107 Carbon Dioxide 22 L BUN 12 Creatinine 1.04 Glucose 147 H Calcium 8.5 L Consult Discharge Plan - Plan Additional Instructions: May remove bandage and shower on 04/19/2019. Wash wound gently with soap and water only and pat to dry. Applied dry gauze to wounds daily for 7 days. No tub baths or swimming until 05/20/2019. Call Dr. Olvera at [phone] with questions or concerns. Referrals: Jaiden Evans MD [Primary Care Provider] -
== END 2019-04-18 12:30 | disposition home or self-care (01) | DRG 272 ==
LOC: SAMDAY 06:37 → 2NNU 11:39
PROVIDERS: ADMIT Surgery; ATTEND Surgery

== ENCOUNTER 2020-06-02 10:15 | Inpatient (IN) ==
[~2020-06-02 10:15] MED LIST: *HR* HYDROmorphone PF 0.5 MG/0.5 ML SYRINGE IVP PRN; *HR* Meperidine 25 MG/ML SYRINGE IVP PRN; *HR* Promethazine 25 MG/ML VIAL IVP PRN; Acetaminophen IV 1,000 MG/100 ML INFUS..BTL IVPB ONE; Ondansetron 4 MG/2 ML VIAL IVP ONE
[2020-06-02] MEDS ORDERED: *HR* Propofol 200 MG/20 ML VIAL IVP ONE (10:38)
[2020-06-02] MEDS ORDERED: Ondansetron 4 MG/2 ML VIAL ONE (10:39)
[2020-06-02] MEDS ORDERED: *HR* Rocuronium Bromide 50 MG/5 ML VIAL ONE ×2 (10:39→14:03)
[2020-06-02] MEDS ORDERED: Dexamethasone 4 MG/ML VIAL ONE ×2 (10:39→14:15)
[2020-06-02] MEDS ORDERED: Lidocaine -MPF 2% 2 ML VIAL ONE (10:39)
[2020-06-02] MEDS ORDERED: *HR* Phenylephrine 10 MG/ML VIAL ONE (10:39)
[2020-06-02] MEDS ORDERED: *HR* Heparin 5,000 UNIT/ML VIAL ONE (10:40)
[2020-06-02] MEDS ORDERED: *HR* FentaNYL (PF) 100 MCG/2 ML VIAL ONE (10:42)
[2020-06-02] MEDS ORDERED: Vancomycin 1,750 MG/517.5 ML IV.SOLN IVPB ONE (10:51)
[2020-06-02] MEDS ORDERED: CeFAZolin Syr 2,000MG/20 ML 2,000 MG/20 ML SYRINGE IVPB ONE (10:51)
[2020-06-02] MEDS ORDERED: Ringers Solution, Lactated 1,000 ML IVC SCH (11:00)
[2020-06-02] MEDS ORDERED: Heparin 1,000 UNITS/500 mL 500 ML ONE ×3 (12:19→12:52)
[2020-06-02] MEDS ORDERED: Vancomycin 1,000 MG VIAL ONE (12:21)
[2020-06-02] MEDS ORDERED: Isovue-300 50ML VIAL ONE (12:21)
[2020-06-02] MEDS ORDERED: *HR* Remifentanil 1 MG VIAL IVP ONE ×2 (12:31→12:36)
[2020-06-02] MEDS ORDERED: Vancomycin 1,000 MG, Sodium Chloride IRRigation 1,000 ML IR ONE (13:30)
[2020-06-02] MEDS ORDERED: EPHEDrine 50 MG/ML VIAL ONE (14:02)
[2020-06-02] MEDS ORDERED: Albumin Human 5% 25.0 GM/500 ML IV.SOLN ONE (14:04)
[2020-06-02] MEDS ORDERED: *HR* Vasopressin 20 UNIT/ML VIAL ONE (14:04)
[2020-06-02] MEDS ORDERED: *HR* OxyCODONE Immed Rel 5 MG TABLET PO PRN ×2 (17:28)
[2020-06-02] MEDS ORDERED: Naloxone 0.4 MG/ML INJ IVP PRN (17:28)
[2020-06-02] MEDS ORDERED: Acetaminophen 325 MG TABLET PO PRN ×2 (17:28)
[2020-06-02] MEDS ORDERED: 0.9 % Sodium Chloride 1,000 ML IVC SCH (17:28)
[2020-06-02] MEDS ORDERED: *HR* OxyCODONE/APAP 5/325 TABLET PO PRN ×2 (17:28)
[2020-06-02] MEDS ORDERED: *HR* Labetalol 20 MG/4 ML SYRINGE IVP PRN (17:28)
[2020-06-02] MEDS: *HR* OxyCODONE Immed Rel 5 MG TABLET PO SCH ×2 (18:06→21:09)
[2020-06-02] MEDS: *HR* Metoprolol 5 MG/5 ML VIAL IVP SCH ×2 (18:10→23:48)
[2020-06-02] MEDS: *HR* Methadone 10 MG TABLET PO SCH (20:28)
[2020-06-02] MEDS: CeFAZolin 2 GM/120 ML BAG IVPB SCH (20:28)
[2020-06-03] MEDS ORDERED: Vancomycin 1,750 MG/517.5 ML IV.SOLN IVPB ONE (01:00)
[2020-06-03] MEDS: *HR* Metoprolol 5 MG/5 ML VIAL IVP SCH (04:21)
[2020-06-03] MEDS: CeFAZolin 2 GM/120 ML BAG IVPB SCH (04:21)
[2020-06-03] MEDS ORDERED: *HR* Heparin 5,000 UNIT/ML VIAL SQ SCH (06:00)
[2020-06-03 06:19] LABS: Basophils % 0.3 %; Hematocrit 43.6 % (37.5-50.1); Immature Granulocytes % 0.5 % (0-4); Lymphocytes # 1.6 K/mcL (0.6-4.6); Lymphocytes % 12.6 %; Mean Corpuscular HGB Conc 33.5 g/dL (31.6-35.5); Mean Corpuscular Hemoglobin 30.5 pg (28.0-33.3); Mean Platelet Volume 8.8 fL (9.4-12.4); Monocytes # 0.6 K/mcL (0.0-1.3); Monocytes % 4.4 %; Neutrophils # 10.7 K/mcL (1.6-8.9); Platelet Count 226 K/mcL (140-400); Red Blood Count 4.79 M/mcL (4.19-5.50); Red Cell Distribution Width 13.7 % (11.5-14.5); Segmented Neutrophils % 82.2 %
[2020-06-03 06:25] LABS: Hemoglobin 14.6 g/dL (12.9-16.9)
[2020-06-03 06:42] LABS: BUN/Creatinine Ratio 15 (6-26); Blood Urea Nitrogen 17 mg/dL (6-20); Calcium 8.4 mg/dL (8.6-10.3); Carbon Dioxide 23 mEq/L (23-29); Chloride 108 mEq/L (98-107); Glucose 129 mg/dL (70-105); Osmolality,Calculated 289 (280-300); Potassium 4.4 mEq/L (3.5-5.1); Sodium 138 mEq/L (136-145); eGFR For African Americans > 60 (> 60); eGFR For Non-African Americans > 60 (> 60)
[2020-06-03 07:23] VITALS: BP 111/65
[2020-06-03] MEDS: *HR* OxyCODONE Immed Rel 5 MG TABLET PO SCH (07:38)
[2020-06-03] MEDS: *HR* Methadone 10 MG TABLET PO SCH (07:38)
== END 2020-06-03 09:32 | disposition home or self-care (01) | DRG 254 ==
LOC: SAMDAY 10:15 → 2NNU 17:20
PROVIDERS: ADMIT Surgery; ATTEND Surgery

== ENCOUNTER 2021-01-04 10:52 | Inpatient (IN) ==
[2021-01-04] MEDS ORDERED: *HR* Rocuronium Bromide 50 MG/5 ML VIAL ONE ×2 (11:11→13:54)
[2021-01-04] MEDS ORDERED: *HR* Midazolam HCl 2 MG/2 ML VIAL ONE (11:11)
[2021-01-04] MEDS ORDERED: Ondansetron 4 MG/2 ML VIAL ONE (11:11)
[2021-01-04] MEDS ORDERED: Lidocaine HCL 4 ML Topical Solution (Laryng-O-Jet Kit Sterile Pak) TP ONE (11:11)
[2021-01-04] MEDS ORDERED: Lidocaine -MPF 2% 2 ML VIAL ONE (11:11)
[2021-01-04] MEDS ORDERED: *HR* Propofol 200 MG/20 ML VIAL IVP ONE (11:12)
[2021-01-04] MEDS ORDERED: *HR* Remifentanil 2 MG VIAL IVP ONE (11:13)
[2021-01-04] MEDS ORDERED: CeFAZolin Syr 3,000MG/30 ML 3,000 MG/30 ML SYRINGE IVPB ONE (11:26)
[2021-01-04] MEDS ORDERED: Ringers Solution, Lactated 1,000 ML IVC SCH (11:30)
[2021-01-04] MEDS ORDERED: *HR* HYDROmorphone PF 0.5 MG/0.5 ML SYRINGE IVP PRN (11:41)
[2021-01-04] MEDS ORDERED: Ondansetron 4 MG/2 ML VIAL IVP PRN ×2 (11:41→17:28)
[2021-01-04] MEDS ORDERED: Vancomycin 1,750 MG/517.5 ML IV.SOLN IVPB ONE (12:00)
[2021-01-04] MEDS ORDERED: Heparin 1,000 UNITS/500 mL 1,500 ML ONE (12:13)
[2021-01-04] MEDS ORDERED: Vancomycin 1,000 MG VIAL ONE (12:13)
[2021-01-04] MEDS ORDERED: Vancomycin 1,000 MG, Sodium Chloride IRRigation 1,000 ML IR ONE (12:30)
[2021-01-04] MEDS ORDERED: *HR* Vasopressin 20 UNIT/ML VIAL ONE (13:26)
[2021-01-04] MEDS ORDERED: EPHEDrine 50 MG/ML VIAL ONE (13:44)
[2021-01-04] MEDS ORDERED: *HR* Heparin 5,000 UNIT/ML VIAL ONE ×2 (14:29→15:10)
[2021-01-04] MEDS ORDERED: *HR* Remifentanil 1 MG VIAL IVP ONE (15:39)
[2021-01-04] MEDS ORDERED: Sugammadex Sodium 200 MG/2 ML VIAL IV ONE (15:39)
[2021-01-04] MEDS ORDERED: *HR* OxyCODONE Immed Rel 5 MG TABLET PO PRN (17:28)
[2021-01-04] MEDS ORDERED: Naloxone 0.4 MG/ML INJ IVP PRN (17:28)
[2021-01-04] MEDS ORDERED: *HR* HYDROcodone/Acet 5/325 mg TABLET PO PRN (17:28)
[2021-01-04] MEDS ORDERED: *HR* Labetalol 20 MG/4 ML SYRINGE IVP PRN (17:28)
[2021-01-04] MEDS ORDERED: Acetaminophen 325 MG TABLET PO PRN (17:28)
[2021-01-04] MEDS ORDERED: 0.9 % Sodium Chloride 1,000 ML IVC SCH (17:28)
[2021-01-04] MEDS: *HR* Metoprolol 5 MG/5 ML VIAL IVP SCH (17:44)
[2021-01-04] MEDS: *HR* Methadone 10 MG TABLET PO SCH (18:04)
[2021-01-04] MEDS: Diclofenac Sodium (DR) 50 MG TABLET.DR PO SCH (20:13)
[2021-01-04] MEDS: Gabapentin 300 MG CAPSULE PO SCH (20:13)
[2021-01-04] MEDS: CeFAZolin 2 GM/120 ML BAG IVPB SCH (20:14)
[2021-01-05] MEDS: *HR* Metoprolol 5 MG/5 ML VIAL IVP SCH ×3 (00:55→11:22)
[2021-01-05] MEDS: CeFAZolin 2 GM/120 ML BAG IVPB SCH (03:14)
[2021-01-05] MEDS ORDERED: *HR* Promethazine 25 MG/ML VIAL IM PRN (03:42)
[2021-01-05 04:19] LABS: Basophils # 0.1 K/mcL (0.0-0.2); Basophils % 0.3 %; Hematocrit 46.3 % (37.5-50.1); Hemoglobin 15.2 g/dL (12.9-16.9); Lymphocytes # 1.9 K/mcL (0.6-4.6); Lymphocytes % 12.3 %; Mean Corpuscular HGB Conc 32.8 g/dL (31.6-35.5); Mean Corpuscular Hemoglobin 29.6 pg (28.0-33.3); Mean Corpuscular Volume 90.1 fL (83.0-100.0); Mean Platelet Volume 8.7 fL (9.4-12.4); Monocytes # 0.7 K/mcL (0.0-1.3); Monocytes % 4.7 %; Neutrophils # 12.8 K/mcL (1.6-8.9); Platelet Count 260 K/mcL (140-400); Red Blood Count 5.14 M/mcL (4.19-5.50); Red Cell Distribution Width 13.7 % (11.5-14.5); Segmented Neutrophils % 81.7 %; White Blood Count 15.7 K/mcL (4.3-11.1)
[2021-01-05 04:40] LABS: Potassium 4.3 mEq/L (3.5-5.1)
[2021-01-05] MEDS ORDERED: *HR* Heparin 5,000 UNIT/ML VIAL SQ SCH ×2 (06:00)
[2021-01-05] MEDS: *HR* Methadone 10 MG TABLET PO SCH ×2 (06:02→06:20)
[2021-01-05 07:28] VITALS: BP 147/73
[2021-01-05] MEDS ORDERED: lisinopriL 10 MG TABLET PO SCH (09:00)
[2021-01-05] MEDS: Diclofenac Sodium (DR) 50 MG TABLET.DR PO SCH (09:21)
[2021-01-05] MEDS: Gabapentin 300 MG CAPSULE PO SCH (09:21)
== END 2021-01-05 11:58 | disposition home or self-care (01) | DRG 254 ==
LOC: SAMDAY 10:52 → 2NNU 17:27
PROVIDERS: ADMIT Surgery; ATTEND Surgery

== ENCOUNTER 2021-10-18 09:03 | Inpatient (IN) ==
[2021-10-18] MEDS ORDERED: 0.9 % Sodium Chloride 1,000 ML ONE ×2 (09:16→09:26)
[2021-10-18] MEDS ORDERED: Heparin 1,000 UNITS/500 mL 500 ML ONE (09:25)
[2021-10-18] MEDS ORDERED: *HR* Heparin 10,000 UNIT/10 ML VIAL ONE (09:25)
[2021-10-18] MEDS ORDERED: *HR* Midazolam HCl 2 MG/2 ML VIAL ONE (09:25)
[2021-10-18] MEDS ORDERED: *HR* FentaNYL (PF) 100 MCG/2 ML VIAL ONE (09:25)
[2021-10-18] MEDS ORDERED: ISOVUE-370 200 ML INFUS..BTL ONE (09:26)
[2021-10-18] MEDS ORDERED: Nitroglycerin 1,000 MCG/5 ML VIAL IV ONE (09:26)
[2021-10-18] MEDS ORDERED: methylPREDNISolone 125 MG/2 ML VIAL ONE (10:16)
[2021-10-18] MEDS ORDERED: Acetaminophen 325 MG TABLET PO PRN (15:00)
[2021-10-18] MEDS: Nicotine 21 MG PATCH.TD24 TD SCH (15:24)
[2021-10-18] MEDS: 0.9 % Sodium Chloride 1,000 ML IVC SCH (15:25)
[2021-10-18] MEDS: *HR* Heparin 5,000 UNIT/ML VIAL SQ SCH (17:03)
[2021-10-18] MEDS: Gabapentin 300 MG CAPSULE PO SCH (20:32)
[2021-10-18] MEDS: rOPINIRole 0.25 MG TABLET PO SCH (20:32)
[2021-10-19 04:42] LABS: BUN/Creatinine Ratio 18 (6-26); Blood Urea Nitrogen 25 mg/dL (6-20); Calcium 9.1 mg/dL (8.6-10.3); Carbon Dioxide 19 mEq/L (23-29); Chloride 107 mEq/L (98-107); Glucose 210 mg/dL (70-105); Osmolality,Calculated 287 (280-300); Potassium 4.6 mEq/L (3.5-5.1); Sodium 133 mEq/L (136-145); eGFR For African Americans > 60 (> 60); eGFR For Non-African Americans 52 (> 60)
[2021-10-19] MEDS: *HR* Heparin 5,000 UNIT/ML VIAL SQ SCH ×2 (06:03→16:53)
[2021-10-19] MEDS: lisinopriL 10 MG TABLET PO SCH (09:03)
[2021-10-19] MEDS: Gabapentin 300 MG CAPSULE PO SCH ×3 (09:03→19:47)
[2021-10-19] MEDS: Aspirin 81 MG TAB.CHEW PO SCH (09:03)
[2021-10-19] MEDS: Nicotine 21 MG PATCH.TD24 TD SCH (09:03)
[2021-10-19] MEDS: Ergocalciferol (VIT D2) 50,000 UNIT (1.25MG) CAP PO SCH (09:03)
[2021-10-19] MEDS: Isosorbide MONOnitrate (24 HR) 30 MG TAB.ER.24H PO SCH (10:59)
[2021-10-19] MEDS: 0.9 % Sodium Chloride 1,000 ML IVC SCH (10:59)
[2021-10-19] MEDS: amLODIPine 5 MG TABLET PO SCH (15:06)
[2021-10-19] MEDS: rOPINIRole 0.25 MG TABLET PO SCH (19:47)
[2021-10-20] MEDS: *HR* Heparin 5,000 UNIT/ML VIAL SQ SCH ×2 (05:14→18:08)
[2021-10-20] MEDS: 0.9 % Sodium Chloride 1,000 ML IVC SCH (05:14)
[2021-10-20] MEDS: Isosorbide MONOnitrate (24 HR) 30 MG TAB.ER.24H PO SCH (08:27)
[2021-10-20] MEDS: amLODIPine 5 MG TABLET PO SCH (08:27)
[2021-10-20] MEDS: Aspirin 81 MG TAB.CHEW PO SCH (08:27)
[2021-10-20] MEDS: Gabapentin 300 MG CAPSULE PO SCH ×3 (08:27→21:04)
[2021-10-20] MEDS: Nicotine 21 MG PATCH.TD24 TD SCH (08:27)
[2021-10-20] MEDS: lisinopriL 10 MG TABLET PO SCH (08:27)
[2021-10-20] MEDS: rOPINIRole 0.25 MG TABLET PO SCH (21:03)
[2021-10-21 04:14] LABS: Calcium 9.7 mg/dL (8.6-10.3); Potassium 4.4 mEq/L (3.5-5.1)
[2021-10-21] MEDS: *HR* Heparin 5,000 UNIT/ML VIAL SQ SCH ×2 (05:13→17:18)
[2021-10-21] MEDS: 0.9 % Sodium Chloride 1,000 ML IVC SCH (07:28)
[2021-10-21] MEDS: Isosorbide MONOnitrate (24 HR) 30 MG TAB.ER.24H PO SCH (08:13)
[2021-10-21] MEDS: amLODIPine 5 MG TABLET PO SCH (08:13)
[2021-10-21] MEDS: lisinopriL 10 MG TABLET PO SCH (08:13)
[2021-10-21] MEDS: Aspirin 81 MG TAB.CHEW PO SCH (08:13)
[2021-10-21] MEDS: Gabapentin 300 MG CAPSULE PO SCH ×3 (08:13→20:50)
[2021-10-21] MEDS: Nicotine 21 MG PATCH.TD24 TD SCH (08:13)
[2021-10-21 10:50] LABS: Estimated Average Glucose 131 mg/dl; Hemoglobin A1C 6.2 %
[2021-10-21 10:56] LABS: Chol/HDL Ratio 7.6 (0-4.9); Cholesterol 237 mg/dL (< 200); HDL Cholesterol 31 mg/dL (40-59); Triglycerides 475 mg/dL (< 150)
[2021-10-21] MEDS: rOPINIRole 0.25 MG TABLET PO SCH (20:50)
[2021-10-22] LABS: Bilirubin,Urine Negative (Negative); Blood,Urine Small (Negative); Clarity,Urine Clear (Clear); Color,Urine Light-Yellow (Yellow); Glucose,Urine (UA) Normal (Normal); Ketones,Urine Negative (Negative); Leukocyte Esterase,Urine Negative (Negative); Mucus,Urine Few per lpf (None-Few); Nitrite,Urine Negative (Negative); Protein,Urine 50 mg/dL (Neg-Trace); RBC,Urine 0-3 per hpf (0-3); Specific Gravity,Urine 1.016 (1.010-1.025); Squamous Epithelial Cell,Urine Few per hpf (None-Few); Urobilinogen,Urine Normal (Normal); WBC,Urine 0-3 per hpf (0-3)
[2021-10-22 00:57] LABS: Protein/Creatinine Ratio,Urine 0.42 mg/mg (0.00-0.20); Sodium, Urine 94.1 mEq/L
[2021-10-22] MEDS: *HR* Heparin 5,000 UNIT/ML VIAL SQ SCH ×2 (05:20→16:56)
[2021-10-22 06:38] LABS: Basophils # 0.1 K/mcL (0.0-0.2); Basophils % 1.1 %; Eosinophils # 0.1 K/mcL (0.0-0.6); Eosinophils % 1.1 %; Hematocrit 52.9 % (37.5-50.1); Hemoglobin 17.5 g/dL (12.9-16.9); Immature Granulocytes % 1.7 % (0-4); Lymphocytes # 4.3 K/mcL (0.6-4.6); Lymphocytes % 32.8 %; Mean Corpuscular HGB Conc 33.1 g/dL (31.6-35.5); Mean Corpuscular Hemoglobin 30.4 pg (28.0-33.3); Mean Corpuscular Volume 91.8 fL (83.0-100.0); Monocytes # 1.1 K/mcL (0.0-1.3); Monocytes % 8.1 %; Neutrophils # 7.3 K/mcL (1.6-8.9); Platelet Count 325 K/mcL (140-400); Red Blood Count 5.76 M/mcL (4.19-5.50); Red Cell Distribution Width 14.4 % (11.5-14.5); Segmented Neutrophils % 55.2 %; White Blood Count 13.1 K/mcL (4.3-11.1)
[2021-10-22 06:58] LABS: Albumin 3.9 g/dL (3.5-5.7); Calcium 9.6 mg/dL (8.6-10.3); Phosphorous 3.7 mg/dL (2.7-4.5); Potassium 4.4 mEq/L (3.5-5.1)
[2021-10-22] MEDS: Isosorbide MONOnitrate (24 HR) 30 MG TAB.ER.24H PO SCH (07:45)
[2021-10-22] MEDS: Gabapentin 300 MG CAPSULE PO SCH ×3 (07:45→20:34)
[2021-10-22] MEDS: Aspirin 81 MG TAB.CHEW PO SCH (07:45)
[2021-10-22] MEDS: Nicotine 21 MG PATCH.TD24 TD SCH (07:48)
[2021-10-22 09:54] LABS: Complement C3 191 mg/dL (87-200)
[2021-10-22] MEDS: amLODIPine 5 MG TABLET PO SCH (11:56)
[2021-10-22] MEDS: 0.9 % Sodium Chloride 1,000 ML IVC SCH (16:57)
[2021-10-22] MEDS: rOPINIRole 0.25 MG TABLET PO SCH (20:35)
[2021-10-23 02:51] LABS: Basophils # 0.1 K/mcL (0.0-0.2); Eosinophils # 0.2 K/mcL (0.0-0.6); Eosinophils % 1.2 %; Hematocrit 52.3 % (37.5-50.1); Immature Granulocytes % 1.7 % (0-4); Lymphocytes # 4.8 K/mcL (0.6-4.6); Lymphocytes % 33.8 %; Mean Corpuscular HGB Conc 32.5 g/dL (31.6-35.5); Mean Corpuscular Hemoglobin 29.9 pg (28.0-33.3); Mean Corpuscular Volume 91.9 fL (83.0-100.0); Mean Platelet Volume 8.8 fL (9.4-12.4); Monocytes # 1.1 K/mcL (0.0-1.3); Monocytes % 7.4 %; Neutrophils # 7.9 K/mcL (1.6-8.9); Platelet Count 310 K/mcL (140-400); Red Blood Count 5.69 M/mcL (4.19-5.50); Red Cell Distribution Width 14.5 % (11.5-14.5); Segmented Neutrophils % 54.9 %; White Blood Count 14.3 K/mcL (4.3-11.1)
[2021-10-23] MEDS: *HR* Heparin 5,000 UNIT/ML VIAL SQ SCH ×2 (05:41→16:29)
[2021-10-23] MEDS: Nicotine 21 MG PATCH.TD24 TD SCH (08:54)
[2021-10-23] MEDS: Gabapentin 300 MG CAPSULE PO SCH ×3 (08:54→20:39)
[2021-10-23] MEDS: Isosorbide MONOnitrate (24 HR) 30 MG TAB.ER.24H PO SCH (08:54)
[2021-10-23] MEDS: amLODIPine 5 MG TABLET PO SCH (08:54)
[2021-10-23] MEDS: Aspirin 81 MG TAB.CHEW PO SCH (08:54)
[2021-10-23 11:07] LABS: Calcium 9.7 mg/dL (8.6-10.3); Potassium 4.1 mEq/L (3.5-5.1)
[2021-10-23] MEDS: 0.9 % Sodium Chloride 1,000 ML IVC SCH (16:29)
[2021-10-23] MEDS: rOPINIRole 0.25 MG TABLET PO SCH (20:39)
[2021-10-24 06:03] LABS: Calcium 9.6 mg/dL (8.6-10.3); Potassium 4.4 mEq/L (3.5-5.1)
[2021-10-24] MEDS: *HR* Heparin 5,000 UNIT/ML VIAL SQ SCH ×2 (06:20→16:59)
[2021-10-24] MEDS: Gabapentin 300 MG CAPSULE PO SCH ×3 (08:21→19:50)
[2021-10-24] MEDS: amLODIPine 5 MG TABLET PO SCH (08:21)
[2021-10-24] MEDS: Nicotine 21 MG PATCH.TD24 TD SCH (08:22)
[2021-10-24] MEDS: Isosorbide MONOnitrate (24 HR) 30 MG TAB.ER.24H PO SCH (08:22)
[2021-10-24] MEDS: Aspirin 81 MG TAB.CHEW PO SCH (08:22)
[2021-10-24] MEDS: 0.9 % Sodium Chloride 1,000 ML IVC SCH (12:16)
[2021-10-24 14:01] LABS: Influenza A PCR Negative (Negative); Influenza B PCR Negative (Negative); Resp. Syncytial Virus PCR Negative (Negative)
[2021-10-24 14:09] LABS: SARS-CoV-2 by PCR (In House) Negative (Negative)
[2021-10-24] MEDS: Chlorhexidine Rinse 15 ML MOUTHWASH MM SCH (19:46)
[2021-10-24] MEDS: rOPINIRole 0.25 MG TABLET PO SCH (19:50)
[2021-10-25] MEDS: 0.9 % Sodium Chloride 1,000 ML IVC SCH ×2 (01:12→13:23)
[2021-10-25] MEDS ORDERED: Heparin 15,000 UNIT in 0.9 % Sodium Chloride 500 ML IV ONE (06:00)
[2021-10-25] MEDS ORDERED: Cardioplegic Solution w/ Potassium 5 MEQ TH ONE ×3 (06:00)
[2021-10-25] MEDS ORDERED: Aspirin 81 MG TAB.CHEW PO ONE (06:00)
[2021-10-25] MEDS ORDERED: Norepinephrine 4 MG in 0.9 % Sodium Chloride 250 ML IVC PRN (06:00)
[2021-10-25] MEDS ORDERED: *HR* Midazolam HCl 5 MG/5 ML VIAL IVP ONE (06:19)
[2021-10-25] MEDS ORDERED: *HR* FentaNYL (PF) 1,000 MCG/20 ML VIAL ONE (06:19)
[2021-10-25] MEDS ORDERED: *HR* Rocuronium Bromide 50 MG/5 ML VIAL ONE (06:21)
[2021-10-25] MEDS: *HR* Heparin 5,000 UNIT/ML VIAL SQ SCH ×2 (06:21→17:52)
[2021-10-25] MEDS ORDERED: Tranexamic Acid 1,000 MG/10 ML VIAL ONE ×3 (06:22→11:35)
[2021-10-25] MEDS ORDERED: Famotidine 20 MG/2 ML VIAL ONE (06:22)
[2021-10-25] MEDS ORDERED: *HR* Etomidate 20 MG/10 ML AMPUL IVP ONE (06:22)
[2021-10-25] MEDS: Chlorhexidine Rinse 15 ML MOUTHWASH MM SCH ×2 (06:24→20:31)
[2021-10-25] MEDS ORDERED: Protamine Sulfate 250 MG/25 ML VIAL IVP ONE (06:24)
[2021-10-25] MEDS ORDERED: Calcium Gluconate 1,000 MG/10 ML VIAL ONE (06:25)
[2021-10-25] MEDS ORDERED: NiCARdipine 2.5 MG/10 ML Syringe IVPB ONE (06:32)
[2021-10-25] MEDS ORDERED: CeFAZolin Syr 3,000MG/30 ML 3,000 MG/30 ML SYRINGE IVPB ONE (07:00)
[2021-10-25] MEDS ORDERED: Cardioplegic Solution w/ Potassium 20 MEQ TH ONE (07:45)
[2021-10-25 07:47] LABS: ABG Base Excess -6 mEq/L (-2 to 3); ABG Chloride 110 mEq/L (98-107); ABG Glucose 96 mg/dL (60-95); ABG HCO3 21 mEq/L (21-27); ABG Ionized Calcium 1.21 mmol/L (1.15-1.35); ABG Oxygen Saturation 98 % (95-98); ABG PCO2 45 mmHg (35-45); ABG PH 7.28 pH Units (7.32-7.45); ABG PO2 124 mmHg (85-104); ABG TCO2 23 mEq/L (20-26)
[2021-10-25 09:21] LABS: ABG Base Excess -8 mEq/L (-2 to 3); ABG Chloride 111 mEq/L (98-107); ABG Glucose 124 mg/dL (60-95); ABG HCO3 21 mEq/L (21-27); ABG Ionized Calcium 1.07 mmol/L (1.15-1.35); ABG Oxygen Saturation 94 % (95-98); ABG PCO2 52 mmHg (35-45); ABG PO2 87 mmHg (85-104); ABG TCO2 22 mEq/L (20-26)
[2021-10-25 09:55] LABS: ABG Base Excess -5 mEq/L (-2 to 3); ABG Chloride 105 mEq/L (98-107); ABG Glucose 140 mg/dL (60-95); ABG HCO3 22 mEq/L (21-27); ABG Ionized Calcium 1.07 mmol/L (1.15-1.35); ABG Oxygen Saturation 100 % (95-98); ABG PCO2 46 mmHg (35-45); ABG PH 7.28 pH Units (7.32-7.45); ABG PO2 561 mmHg (85-104); ABG TCO2 23 mEq/L (20-26)
[2021-10-25] MEDS ORDERED: *HR* Magnesium Sulfate 2 GM/50 ML PIGGYBACK IVPB ONE (10:00)
[2021-10-25] MEDS ORDERED: *HR* Heparin 10,000 UNIT/10 ML VIAL ONE (10:00)
[2021-10-25] MEDS ORDERED: Mannitol 25% vial 12.5 GM/50 ML VIAL ONE (10:00)
[2021-10-25] MEDS ORDERED: *HR* Phenylephrine 10 MG/ML VIAL ONE (10:00)
[2021-10-25] MEDS ORDERED: Albumin Human 25% 25 GM/100 ML IV.SOLN ONE (10:00)
[2021-10-25] MEDS ORDERED: Sodium Bicarbonate 50 MEQ/50 ML VIAL ONE (10:00)
[2021-10-25 10:23] LABS: ABG Base Excess -6 mEq/L (-2 to 3); ABG Chloride 105 mEq/L (98-107); ABG Glucose 141 mg/dL (60-95); ABG HCO3 20 mEq/L (21-27); ABG Ionized Calcium 1.09 mmol/L (1.15-1.35); ABG Oxygen Saturation 100 % (95-98); ABG PCO2 41 mmHg (35-45); ABG PO2 596 mmHg (85-104); ABG TCO2 22 mEq/L (20-26)
[2021-10-25 10:36] LABS: ABG Base Excess -5 mEq/L (-2 to 3); ABG Chloride 101 mEq/L (98-107); ABG Glucose 135 mg/dL (60-95); ABG HCO3 21 mEq/L (21-27); ABG Ionized Calcium 1.02 mmol/L (1.15-1.35); ABG Oxygen Saturation 100 % (95-98); ABG PCO2 43 mmHg (35-45); ABG PO2 590 mmHg (85-104); ABG TCO2 23 mEq/L (20-26)
[2021-10-25 10:54] LABS: ABG Base Excess -3 mEq/L (-2 to 3); ABG Chloride 102 mEq/L (98-107); ABG Glucose 134 mg/dL (60-95); ABG HCO3 23 mEq/L (21-27); ABG Ionized Calcium 1.03 mmol/L (1.15-1.35); ABG Oxygen Saturation 100 % (95-98); ABG PCO2 42 mmHg (35-45); ABG PH 7.35 pH Units (7.32-7.45); ABG PO2 572 mmHg (85-104); ABG TCO2 24 mEq/L (20-26)
[2021-10-25] MEDS ORDERED: Protamine Sulfate 50 MG/5 ML VIAL IVP ONE (11:02)
[2021-10-25] MEDS ORDERED: niCARdipine 40 MG/200 ML MLS IVC ONE (11:23)
[2021-10-25] MEDS ORDERED: Insulin Regular, Human 100 UNIT/ML IV PRN (11:51)
[2021-10-25] MEDS ORDERED: Acetaminophen 650 MG RECTAL SUPP RC PRN (11:51)
[2021-10-25] MEDS ORDERED: *HR* Dextrose 50 % in Water (Syg) 50 ML SYRINGE IVP PRN (11:51)
[2021-10-25] MEDS ORDERED: Calcium Gluconate 1gm/50mL 1 GM/50 ML BAG IVPB PRN (11:51)
[2021-10-25] MEDS ORDERED: Ondansetron 4 MG/2 ML VIAL IVP PRN (11:51)
[2021-10-25] MEDS ORDERED: Potassium Chloride 40 MEQ/200 ML BAG IVPB PRN (11:51)
[2021-10-25] MEDS: niCARdipine 20 MG/200 ML MLS IVC SCH ×3 (12:28→20:43)
[2021-10-25 13:04] LABS: ABG Base Excess -6 mEq/L (-2 to 3); ABG HCO3 24 mEq/L (21-27); ABG Oxygen Saturation 88 % (95-98); ABG PCO2 60 mmHg (35-45); ABG PO2 67 mmHg (85-104); ABG TCO2 25 mEq/L (20-26); Blood Gas Modality ASSIST CONTROL; Blood Gas VT 520 cc
[2021-10-25 13:07] LABS: Hematocrit 48.1 % (37.5-50.1); Hemoglobin 15.7 g/dL (12.9-16.9); Mean Corpuscular HGB Conc 32.6 g/dL (31.6-35.5); Mean Corpuscular Hemoglobin 30.1 pg (28.0-33.3); Mean Corpuscular Volume 92.3 fL (83.0-100.0); Platelet Count 217 K/mcL (140-400); Red Blood Count 5.21 M/mcL (4.19-5.50); Red Cell Distribution Width 14.5 % (11.5-14.5)
[2021-10-25 13:13] LABS: White Blood Count 33.5 K/mcL (4.3-11.1)
[2021-10-25 13:15] LABS: INR 1.1
[2021-10-25 13:17] LABS: Activated Partial Thrombo Time 29.8 Seconds (26.0-36.0)
[2021-10-25 13:18] LABS: Calcium 8.6 mg/dL (8.6-10.3); Magnesium 2.4 mg/dL (1.6-2.6); Potassium 4.8 mEq/L (3.5-5.1)
[2021-10-25] MEDS: Metoclopramide 10 MG/2 ML VIAL IVP SCH ×2 (13:19→18:24)
[2021-10-25] MEDS: Pantoprazole 40 MG VIAL IVP SCH (13:20)
[2021-10-25 13:22] LABS: Prothrombin Time 11.8 Seconds (9.4-12.1)
[2021-10-25] MEDS: *HR* FentaNYL (PF) 100 MCG/2 ML VIAL IVP PRN ×2 (13:31→15:22)
[2021-10-25 13:59] LABS: Eosinophils # 0.7 K/mcL (0.0-0.6); Lymphocytes # 3.7 K/mcL (0.6-4.6); Monocytes # 2.7 K/mcL (0.0-1.3); Neutrophils # 26.5 K/mcL (1.6-8.9); Platelet Estimate Normal (Normal)
[2021-10-25] MEDS: Norepinephrine 4 MG/254 ML IV.SOLN IVC SCH ×3 (14:30→23:07)
[2021-10-25] MEDS: *HR* OxyCODONE/APAP 5/325 TABLET PO PRN (15:05)
[2021-10-25] MEDS: Gabapentin 300 MG CAPSULE PO SCH ×3 (15:23→20:31)
[2021-10-25] MEDS: Isosorbide MONOnitrate (24 HR) 30 MG TAB.ER.24H PO SCH (15:23)
[2021-10-25] MEDS: Nicotine 21 MG PATCH.TD24 TD SCH (15:33)
[2021-10-25] MEDS ORDERED: Dexmedetomidine HCl 400 MCG/100 ML MLS IVC ONE (16:10)
[2021-10-25 16:12] LABS: ABG Base Excess -11 mEq/L (-2 to 3); ABG Chloride 111 mEq/L (98-107); ABG Glucose 200 mg/dL (60-95); ABG HCO3 19 mEq/L (21-27); ABG Ionized Calcium 1.29 mmol/L (1.15-1.35); ABG Oxygen Saturation 88 % (95-98); ABG PCO2 56 mmHg (35-45); ABG PH 7.14 pH Units (7.32-7.45); ABG PO2 71 mmHg (85-104); ABG TCO2 21 mEq/L (20-26)
[2021-10-25] MEDS: FentaNYL (PF) 1,000 MCG/100 ML IV.SOLN IVC SCH (16:15)
[2021-10-25 16:31] LABS: Hematocrit 51.5 % (37.5-50.1); Hemoglobin 16.6 g/dL (12.9-16.9)
[2021-10-25] MEDS: Dexmedetomidine HCl 400 MCG/100 ML MLS IVC SCH (16:44)
[2021-10-25 16:55] LABS: ABG Base Excess -5 mEq/L (-2 to 3); ABG HCO3 22 mEq/L (21-27); ABG Oxygen Saturation 95 % (95-98); ABG PCO2 48 mmHg (35-45); ABG PH 7.27 pH Units (7.32-7.45); ABG PO2 84 mmHg (85-104); ABG TCO2 23 mEq/L (20-26); Blood Gas Modality ASSIST CONTROL; Blood Gas VT 550 cc
[2021-10-25] MEDS: Albumin Human 5% 12.5 GM/250 ML IV.SOLN IVPB PRN ×4 (17:50→18:46)
[2021-10-25 19:55] LABS: ABG Base Excess -1 mEq/L (-2 to 3); ABG HCO3 25 mEq/L (21-27); ABG Oxygen Saturation 99 % (95-98); ABG PCO2 45 mmHg (35-45); ABG PH 7.35 pH Units (7.32-7.45); ABG PO2 170 mmHg (85-104); ABG TCO2 26 mEq/L (20-26); Blood Gas VT 550 cc
[2021-10-25] MEDS: ceFAZolin 3,000 MG in 0.9 % Sodium Chloride 100 ML IVPB SCH (20:31)
[2021-10-25] MEDS: rOPINIRole 0.25 MG TABLET PO SCH (20:34)
[2021-10-25 21:02] LABS: ABG Base Excess -2 mEq/L (-2 to 3); ABG HCO3 24 mEq/L (21-27); ABG Oxygen Saturation 97 % (95-98); ABG PCO2 43 mmHg (35-45); ABG PH 7.35 pH Units (7.32-7.45); ABG PO2 95 mmHg (85-104); ABG TCO2 25 mEq/L (20-26); Blood Gas VT 550 cc
[2021-10-26 00:11] LABS: ABG Base Excess -1 mEq/L (-2 to 3); ABG HCO3 24 mEq/L (21-27); ABG Oxygen Saturation 96 % (95-98); ABG PCO2 41 mmHg (35-45); ABG PH 7.38 pH Units (7.32-7.45); ABG PO2 81 mmHg (85-104); ABG TCO2 25 mEq/L (20-26); Blood Gas VT 550 cc
[2021-10-26] MEDS: Metoclopramide 10 MG/2 ML VIAL IVP SCH ×5 (00:47→23:51)
[2021-10-26] MEDS: niCARdipine 20 MG/200 ML MLS IVC SCH ×7 (00:47→23:02)
[2021-10-26] MEDS: FentaNYL (PF) 1,000 MCG/100 ML IV.SOLN IVC SCH (00:53)
[2021-10-26] MEDS: Dexmedetomidine HCl 400 MCG/100 ML MLS IVC SCH ×2 (01:55→23:02)
[2021-10-26] MEDS: ceFAZolin 3,000 MG in 0.9 % Sodium Chloride 100 ML IVPB SCH (03:57)
[2021-10-26 04:11] LABS: Basophils % 0.3 %; Eosinophils % 0.1 %; Hematocrit 40.3 % (37.5-50.1); Immature Granulocytes % 1.1 % (0-4); Lymphocytes # 1.5 K/mcL (0.6-4.6); Lymphocytes % 13.3 %; Mean Corpuscular HGB Conc 32.8 g/dL (31.6-35.5); Mean Corpuscular Volume 91.6 fL (83.0-100.0); Mean Platelet Volume 9.2 fL (9.4-12.4); Monocytes % 9.2 %; Neutrophils # 8.6 K/mcL (1.6-8.9); Platelet Count 170 K/mcL (140-400); Red Cell Distribution Width 14.6 % (11.5-14.5)
[2021-10-26 04:17] LABS: Hemoglobin 13.2 g/dL (12.9-16.9); White Blood Count 11.3 K/mcL (4.3-11.1)
[2021-10-26 04:17] LABS: ABG Base Excess -1 mEq/L (-2 to 3); ABG HCO3 24 mEq/L (21-27); ABG Oxygen Saturation 93 % (95-98); ABG PCO2 38 mmHg (35-45); ABG PO2 67 mmHg (85-104); ABG TCO2 25 mEq/L (20-26); Blood Gas Modality ASSIST CONTROL; Blood Gas VT 550 cc
[2021-10-26 04:21] LABS: Prothrombin Time 11.5 Seconds (9.4-12.1)
[2021-10-26 04:24] LABS: Activated Partial Thrombo Time 28.2 Seconds (26.0-36.0)
[2021-10-26 05:06] LABS: Calcium 7.9 mg/dL (8.6-10.3); Magnesium 1.9 mg/dL (1.6-2.6); Potassium 4.6 mEq/L (3.5-5.1)
[2021-10-26] MEDS: *HR* OxyCODONE/APAP 5/325 TABLET PO PRN ×5 (05:19→23:59)
[2021-10-26] MEDS: *HR* Heparin 5,000 UNIT/ML VIAL SQ SCH ×2 (05:19→18:42)
[2021-10-26 07:45] LABS: ABG Base Excess 0 mEq/L (-2 to 3); ABG HCO3 23 mEq/L (21-27); ABG Oxygen Saturation 92 % (95-98); ABG PCO2 34 mmHg (35-45); ABG PH 7.44 pH Units (7.32-7.45); ABG PO2 62 mmHg (85-104); ABG TCO2 24 mEq/L (20-26); Blood Gas Modality CPAP/PS; Blood Gas Pressure Support 10 cm H2O
[2021-10-26] MEDS: Chlorhexidine Rinse 15 ML MOUTHWASH MM SCH ×2 (08:25→19:58)
[2021-10-26] MEDS: Nicotine 21 MG PATCH.TD24 TD SCH (08:25)
[2021-10-26] MEDS: Aspirin Enteric Coated 81 MG Tablet PO SCH (08:25)
[2021-10-26] MEDS: Ergocalciferol (VIT D2) 50,000 UNIT (1.25MG) CAP PO SCH (08:25)
[2021-10-26] MEDS: Gabapentin 300 MG CAPSULE PO SCH ×3 (08:25→19:59)
[2021-10-26] MEDS: Pantoprazole 40 MG VIAL IVP SCH (08:25)
[2021-10-26] MEDS: Isosorbide MONOnitrate (24 HR) 30 MG TAB.ER.24H PO SCH (08:26)
[2021-10-26] MEDS ORDERED: *HR* Dextrose 50 % in Water (Syg) 50 ML SYRINGE IVP PRN (11:37)
[2021-10-26] MEDS ORDERED: Dextrose Gel 15 GM/37.5 ML TUBE PO PRN ×2 (11:37)
[2021-10-26] MEDS ORDERED: D5% in Water 1,000 ML IVC PRN (11:37)
[2021-10-26] MEDS: Norepinephrine 4 MG/254 ML IV.SOLN IVC SCH ×2 (11:45→21:18)
[2021-10-26] MEDS: Insulin LISPRO 300 UNITS/3 ML VIAL SUBQ SCH ×2 (18:38→19:59)
[2021-10-26] MEDS: rOPINIRole 0.25 MG TABLET PO SCH (19:59)
[2021-10-26] MEDS: amLODIPine 5 MG TABLET PO SCH (20:00)
[2021-10-26] MEDS: Aspirin 81 MG TAB.CHEW PO SCH (20:00)
[2021-10-26] MEDS: 0.9 % Sodium Chloride 1,000 ML IVC SCH (21:18)
[2021-10-27] MEDS: niCARdipine 20 MG/200 ML MLS IVC SCH ×6 (03:41→23:26)
[2021-10-27] MEDS: Norepinephrine 4 MG/254 ML IV.SOLN IVC SCH ×3 (03:43→23:26)
[2021-10-27] MEDS: *HR* OxyCODONE/APAP 5/325 TABLET PO PRN ×5 (04:13→21:10)
[2021-10-27 04:35] LABS: Basophils # 0.1 K/mcL (0.0-0.2); Basophils % 0.4 %; Eosinophils % 0.2 %; Hematocrit 39.1 % (37.5-50.1); Immature Granulocytes % 0.6 % (0-4); Lymphocytes # 2.1 K/mcL (0.6-4.6); Lymphocytes % 11.9 %; Mean Corpuscular HGB Conc 33.2 g/dL (31.6-35.5); Mean Corpuscular Hemoglobin 30.7 pg (28.0-33.3); Mean Corpuscular Volume 92.4 fL (83.0-100.0); Mean Platelet Volume 9.8 fL (9.4-12.4); Monocytes # 1.4 K/mcL (0.0-1.3); Monocytes % 7.9 %; Platelet Count 162 K/mcL (140-400); Red Blood Count 4.23 M/mcL (4.19-5.50); Red Cell Distribution Width 14.9 % (11.5-14.5)
[2021-10-27 04:40] LABS: Neutrophils # 14.1 K/mcL (1.6-8.9); White Blood Count 17.9 K/mcL (4.3-11.1)
[2021-10-27 04:43] LABS: INR 1.1; Prothrombin Time 12.3 Seconds (9.4-12.1)
[2021-10-27 04:46] LABS: Activated Partial Thrombo Time 27.5 Seconds (26.0-36.0)
[2021-10-27 04:51] LABS: BUN/Creatinine Ratio 20 (6-26); Blood Urea Nitrogen 26 mg/dL (6-20); Carbon Dioxide 26 mEq/L (23-29); Chloride 104 mEq/L (98-107); Glucose 120 mg/dL (70-105); Osmolality,Calculated 290 (280-300); Potassium 3.8 mEq/L (3.5-5.1); Sodium 137 mEq/L (136-145); eGFR For African Americans > 60 (> 60); eGFR For Non-African Americans 57 (> 60)
[2021-10-27] MEDS: *HR* Heparin 5,000 UNIT/ML VIAL SQ SCH ×2 (05:22→17:51)
[2021-10-27] MEDS: Metoclopramide 10 MG/2 ML VIAL IVP SCH ×4 (05:22→23:27)
[2021-10-27] MEDS: Aspirin Enteric Coated 81 MG Tablet PO SCH (08:10)
[2021-10-27] MEDS: Gabapentin 300 MG CAPSULE PO SCH ×3 (08:10→21:10)
[2021-10-27] MEDS: Nicotine 21 MG PATCH.TD24 TD SCH (08:11)
[2021-10-27] MEDS: Isosorbide MONOnitrate (24 HR) 30 MG TAB.ER.24H PO SCH (08:11)
[2021-10-27] MEDS: Pantoprazole 40 MG VIAL IVP SCH (08:11)
[2021-10-27] MEDS: Chlorhexidine Rinse 15 ML MOUTHWASH MM SCH ×2 (08:12→21:10)
[2021-10-27] MEDS ORDERED: AMIODARONE IVC ONE (08:21)
[2021-10-27] MEDS ORDERED: SODIUM CHLORIDE 0.9% IVC ONE (08:21)
[2021-10-27] MEDS ORDERED: Amiodarone Premix 150 MG/100 ML BAG IVPB ONE ×2 (08:21→08:23)
[2021-10-27] MEDS: Insulin LISPRO 300 UNITS/3 ML VIAL SUBQ SCH ×4 (08:28→21:36)
[2021-10-27] MEDS: FentaNYL (PF) 1,000 MCG/100 ML IV.SOLN IVC SCH ×2 (08:32→23:26)
[2021-10-27] MEDS: Amiodarone 450 MG in 0.9 % Sodium Chloride Excel Bg 241 ML IVC ONE ×2 (09:25→16:27)
[2021-10-27] MEDS ORDERED: Amiodarone 450 MG in 0.9 % Sodium Chloride Excel Bg 241 ML IVC SCH (14:22)
[2021-10-27] MEDS: Dexmedetomidine HCl 400 MCG/100 ML MLS IVC SCH (19:31)
[2021-10-27] MEDS: rOPINIRole 0.25 MG TABLET PO SCH (21:10)
[2021-10-28] MEDS: *HR* OxyCODONE/APAP 5/325 TABLET PO PRN ×4 (01:10→19:37)
[2021-10-28] MEDS: niCARdipine 20 MG/200 ML MLS IVC SCH ×3 (03:11→12:31)
[2021-10-28 03:45] LABS: Basophils # 0.1 K/mcL (0.0-0.2); Basophils % 0.5 %; Eosinophils # 0.2 K/mcL (0.0-0.6); Eosinophils % 1.1 %; Hemoglobin 12.3 g/dL (12.9-16.9); Immature Granulocytes % 0.7 % (0-4); Lymphocytes # 2.3 K/mcL (0.6-4.6); Lymphocytes % 13.3 %; Mean Corpuscular HGB Conc 32.4 g/dL (31.6-35.5); Mean Corpuscular Volume 92.7 fL (83.0-100.0); Mean Platelet Volume 9.4 fL (9.4-12.4); Monocytes # 1.3 K/mcL (0.0-1.3); Monocytes % 7.5 %; Neutrophils # 13.4 K/mcL (1.6-8.9); Nucleated Red Blood Cells 0.1 /100 WBC (0); Platelet Count 161 K/mcL (140-400); Red Cell Distribution Width 14.6 % (11.5-14.5); Segmented Neutrophils % 76.9 %; White Blood Count 17.5 K/mcL (4.3-11.1)
[2021-10-28 04:05] LABS: BUN/Creatinine Ratio 17 (6-26); Blood Urea Nitrogen 21 mg/dL (6-20); Carbon Dioxide 25 mEq/L (23-29); Chloride 104 mEq/L (98-107); Glucose 110 mg/dL (70-105); Magnesium 1.9 mg/dL (1.6-2.6); Osmolality,Calculated 284 (280-300); Potassium 3.5 mEq/L (3.5-5.1); Sodium 135 mEq/L (136-145); eGFR For African Americans > 60 (> 60); eGFR For Non-African Americans > 60 (> 60)
[2021-10-28] MEDS: *HR* Heparin 5,000 UNIT/ML VIAL SQ SCH ×2 (05:10→18:59)
[2021-10-28] MEDS: Metoclopramide 10 MG/2 ML VIAL IVP SCH ×2 (05:10→11:22)
[2021-10-28] MEDS: Norepinephrine 4 MG/254 ML IV.SOLN IVC SCH (05:17)
[2021-10-28] MEDS ORDERED: Amiodarone 450 MG in 0.9 % Sodium Chloride Excel Bg 241 ML IVC SCH ×2 (07:15→12:59)
[2021-10-28] MEDS: Pantoprazole 40 MG VIAL IVP SCH (09:06)
[2021-10-28] MEDS: Insulin LISPRO 300 UNITS/3 ML VIAL SUBQ SCH ×2 (09:06→12:30)
[2021-10-28] MEDS: Nicotine 21 MG PATCH.TD24 TD SCH (09:07)
[2021-10-28] MEDS: Chlorhexidine Rinse 15 ML MOUTHWASH MM SCH ×2 (09:07→19:39)
[2021-10-28] MEDS: Aspirin Enteric Coated 81 MG Tablet PO SCH (09:08)
[2021-10-28] MEDS: Gabapentin 300 MG CAPSULE PO SCH ×3 (09:08→19:38)
[2021-10-28] MEDS: Isosorbide MONOnitrate (24 HR) 30 MG TAB.ER.24H PO SCH (09:08)
[2021-10-28] MEDS: Dexmedetomidine HCl 400 MCG/100 ML MLS IVC SCH (10:58)
[2021-10-28] MEDS ORDERED: *HR* Amiodarone 200 MG TABLET PO SCH ×2 (11:30→21:00)
[2021-10-28] MEDS ORDERED: Acetaminophen 325 MG TABLET PO PRN (13:49)
[2021-10-28] MEDS ORDERED: Ondansetron 4 MG/2 ML VIAL IVP PRN (13:49)
[2021-10-28] MEDS: rOPINIRole 0.25 MG TABLET PO SCH (19:37)
[2021-10-28] MEDS: *HR* Amiodarone 200 MG TABLET PO SCH (19:38)
[2021-10-29] MEDS: *HR* Heparin 5,000 UNIT/ML VIAL SQ SCH ×2 (06:35→17:39)
[2021-10-29 08:03] LABS: Basophils # 0.1 K/mcL (0.0-0.2); Basophils % 0.5 %; Eosinophils # 0.2 K/mcL (0.0-0.6); Eosinophils % 1.3 %; Hematocrit 39.8 % (37.5-50.1); Hemoglobin 13.2 g/dL (12.9-16.9); Immature Granulocytes % 0.7 % (0-4); Lymphocytes # 1.7 K/mcL (0.6-4.6); Lymphocytes % 10.2 %; Mean Corpuscular HGB Conc 33.2 g/dL (31.6-35.5); Mean Corpuscular Hemoglobin 30.8 pg (28.0-33.3); Mean Corpuscular Volume 92.8 fL (83.0-100.0); Mean Platelet Volume 9.5 fL (9.4-12.4); Monocytes # 1.2 K/mcL (0.0-1.3); Monocytes % 7.1 %; Neutrophils # 13.2 K/mcL (1.6-8.9); Nucleated Red Blood Cells 0.2 /100 WBC (0); Platelet Count 212 K/mcL (140-400); Red Blood Count 4.29 M/mcL (4.19-5.50); Red Cell Distribution Width 14.7 % (11.5-14.5); Segmented Neutrophils % 80.2 %; White Blood Count 16.5 K/mcL (4.3-11.1)
[2021-10-29 08:15] LABS: BUN/Creatinine Ratio 15 (6-26); Blood Urea Nitrogen 20 mg/dL (6-20); Calcium 8.5 mg/dL (8.6-10.3); Carbon Dioxide 24 mEq/L (23-29); Chloride 104 mEq/L (98-107); Glucose 108 mg/dL (70-105); Magnesium 1.9 mg/dL (1.6-2.6); Osmolality,Calculated 283 (280-300); Potassium 4.1 mEq/L (3.5-5.1); Sodium 135 mEq/L (136-145); eGFR For African Americans > 60 (> 60); eGFR For Non-African Americans 57 (> 60)
[2021-10-29] MEDS: *HR* OxyCODONE/APAP 5/325 TABLET PO PRN ×3 (08:19→19:22)
[2021-10-29] MEDS: Pantoprazole 40 MG VIAL IVP SCH (08:20)
[2021-10-29] MEDS: Gabapentin 300 MG CAPSULE PO SCH ×3 (08:20→19:22)
[2021-10-29] MEDS: *HR* Amiodarone 200 MG TABLET PO SCH ×3 (08:20→19:23)
[2021-10-29] MEDS: Nicotine 21 MG PATCH.TD24 TD SCH (08:21)
[2021-10-29] MEDS: Aspirin Enteric Coated 81 MG Tablet PO SCH (08:21)
[2021-10-29] MEDS: Chlorhexidine Rinse 15 ML MOUTHWASH MM SCH ×2 (08:21→19:22)
[2021-10-29] MEDS ORDERED: Amiodarone Premix 150 MG/100 ML BAG IVPB ONE ×2 (08:43→08:45)
[2021-10-29] MEDS: rOPINIRole 0.25 MG TABLET PO SCH (19:23)
[2021-10-30] MEDS: *HR* Heparin 5,000 UNIT/ML VIAL SQ SCH ×2 (05:31→18:39)
[2021-10-30 06:28] LABS: Basophils # 0.1 K/mcL (0.0-0.2); Basophils % 0.6 %; Eosinophils # 0.3 K/mcL (0.0-0.6); Eosinophils % 2.1 %; Hemoglobin 13.5 g/dL (12.9-16.9); Immature Granulocytes % 0.9 % (0-4); Lymphocytes # 1.7 K/mcL (0.6-4.6); Lymphocytes % 11.6 %; Mean Corpuscular HGB Conc 32.1 g/dL (31.6-35.5); Mean Corpuscular Hemoglobin 29.8 pg (28.0-33.3); Mean Corpuscular Volume 92.7 fL (83.0-100.0); Mean Platelet Volume 9.3 fL (9.4-12.4); Monocytes # 0.9 K/mcL (0.0-1.3); Monocytes % 6.3 %; Neutrophils # 11.8 K/mcL (1.6-8.9); Nucleated Red Blood Cells 0.1 /100 WBC (0); Platelet Count 236 K/mcL (140-400); Red Blood Count 4.53 M/mcL (4.19-5.50); Red Cell Distribution Width 14.7 % (11.5-14.5); Segmented Neutrophils % 78.5 %
[2021-10-30 06:48] LABS: BUN/Creatinine Ratio 17 (6-26); Blood Urea Nitrogen 22 mg/dL (6-20); Calcium 8.8 mg/dL (8.6-10.3); Carbon Dioxide 24 mEq/L (23-29); Chloride 102 mEq/L (98-107); Glucose 109 mg/dL (70-105); Magnesium 1.9 mg/dL (1.6-2.6); Osmolality,Calculated 282 (280-300); Sodium 134 mEq/L (136-145); eGFR For African Americans > 60 (> 60); eGFR For Non-African Americans 58 (> 60)
[2021-10-30] MEDS: Chlorhexidine Rinse 15 ML MOUTHWASH MM SCH ×2 (08:16→20:28)
[2021-10-30] MEDS: Pantoprazole 40 MG VIAL IVP SCH (08:16)
[2021-10-30] MEDS: Nicotine 21 MG PATCH.TD24 TD SCH (08:16)
[2021-10-30] MEDS: Aspirin Enteric Coated 81 MG Tablet PO SCH (08:17)
[2021-10-30] MEDS: *HR* OxyCODONE/APAP 5/325 TABLET PO PRN ×3 (08:17→20:46)
[2021-10-30] MEDS: Gabapentin 300 MG CAPSULE PO SCH ×3 (08:18→20:30)
[2021-10-30] MEDS: *HR* Amiodarone 200 MG TABLET PO SCH ×2 (08:18→20:29)
[2021-10-30] MEDS ORDERED: Acetaminophen 325 MG TABLET PO PRN (10:42)
[2021-10-30] MEDS ORDERED: cilostazoL 100 MG TABLET PO PRN (10:42)
[2021-10-30] MEDS ORDERED: Ondansetron 4 MG/2 ML VIAL IVP PRN (10:42)
[2021-10-30] MEDS ORDERED: CAFFEINE 200 MG PO PRN (10:42)
[2021-10-30] MEDS: rOPINIRole 0.25 MG TABLET PO SCH (20:30)
[2021-10-31] MEDS: *HR* Heparin 5,000 UNIT/ML VIAL SQ SCH ×2 (06:08→16:15)
[2021-10-31] MEDS: *HR* OxyCODONE/APAP 5/325 TABLET PO PRN (08:49)
[2021-10-31] MEDS ORDERED: Pantoprazole 40 MG VIAL IVP SCH (09:00)
[2021-10-31] MEDS: Chlorhexidine Rinse 15 ML MOUTHWASH MM SCH ×2 (09:58→21:40)
[2021-10-31] MEDS: Nicotine 21 MG PATCH.TD24 TD SCH (09:59)
[2021-10-31] MEDS: Aspirin Enteric Coated 81 MG Tablet PO SCH (10:00)
[2021-10-31] MEDS: Gabapentin 300 MG CAPSULE PO SCH ×3 (10:01→21:41)
[2021-10-31] MEDS: *HR* Amiodarone 200 MG TABLET PO SCH ×2 (10:01→21:40)
[2021-10-31] MEDS: *HR* OxyCODONE/APAP 7.5/325 TABLET PO PRN ×3 (11:14→22:10)
[2021-10-31] MEDS: rOPINIRole 0.25 MG TABLET PO SCH (21:41)
[2021-11-01] MEDS: *HR* Heparin 5,000 UNIT/ML VIAL SQ SCH (06:12)
[2021-11-01] MEDS: *HR* OxyCODONE/APAP 7.5/325 TABLET PO PRN ×2 (06:13→10:10)
[2021-11-01 06:14] LABS: Hematocrit 41.9 % (37.5-50.1); Hemoglobin 13.3 g/dL (12.9-16.9); Mean Corpuscular HGB Conc 31.7 g/dL (31.6-35.5); Mean Corpuscular Hemoglobin 29.6 pg (28.0-33.3); Mean Corpuscular Volume 93.3 fL (83.0-100.0); Mean Platelet Volume 9.7 fL (9.4-12.4); Platelet Count 353 K/mcL (140-400); Red Blood Count 4.49 M/mcL (4.19-5.50); Red Cell Distribution Width 14.6 % (11.5-14.5); White Blood Count 14.2 K/mcL (4.3-11.1)
[2021-11-01 07:41] VITALS: BP 92/59; PULSE 78; TEMP 98.5
[2021-11-01] MEDS: Chlorhexidine Rinse 15 ML MOUTHWASH MM SCH (08:31)
[2021-11-01] MEDS: Nicotine 21 MG PATCH.TD24 TD SCH (08:31)
[2021-11-01] MEDS: Gabapentin 300 MG CAPSULE PO SCH (08:31)
[2021-11-01] MEDS: *HR* Amiodarone 200 MG TABLET PO SCH (08:31)
[2021-11-01] MEDS: Aspirin Enteric Coated 81 MG Tablet PO SCH (08:31)
[2021-11-01 09:09] LABS: Magnesium 1.7 mg/dL (1.6-2.6); Potassium 4.3 mEq/L (3.5-5.1)
[2021-11-01 11:23] VITALS: O2SAT 95
[2021-11-02] MEDS ORDERED: Ergocalciferol (VIT D2) 50,000 UNIT (1.25MG) CAP PO SCH ×2 (09:00)
== END 2021-11-01 13:23 | disposition home health service (06) | DRG 233 ==
LOC: INVDIALAB 09:03 → 2ANU 14:01 → ICNU 10-25 00:45 → 2NNU 10-30 10:16
PROVIDERS: ADMIT Internal Medicine Cardiovascular Disease; ATTEND Internal Medicine Cardiovascular Disease

== ENCOUNTER 2021-12-28 06:11 | Inpatient (IN) ==
[2021-12-28] MEDS ORDERED: CeFAZolin Syr 2,000MG/20 ML 2,000 MG/20 ML SYRINGE IVPB ONE (06:22)
[2021-12-28] MEDS ORDERED: 0.9 % Sodium Chloride 500 ML IVC SCH (06:30)
[2021-12-28] MEDS ORDERED: Ringers Solution, Lactated 1,000 ML IVC SCH (06:30)
[2021-12-28] MEDS ORDERED: Protamine Sulfate 50 MG/5 ML VIAL IVP ONE (06:56)
[2021-12-28] MEDS ORDERED: Bupivacaine-MPF 0.25% 10 ML VIAL ONE (06:56)
[2021-12-28] MEDS ORDERED: Heparin 1,000 UNITS/500 mL 500 ML ONE ×3 (06:56→07:18)
[2021-12-28] MEDS ORDERED: Vancomycin 1,000 MG VIAL ONE (06:57)
[2021-12-28] MEDS ORDERED: Vancomycin 1,750 MG/517.5 ML IV.SOLN IVPB ONE ×2 (07:00→21:42)
[2021-12-28] MEDS ORDERED: dexmedeTOMIDine in 0.9 % NaCL 80 MCG/20 ML MLS ONE (07:05)
[2021-12-28] MEDS ORDERED: *HR* Midazolam HCl 5 MG/5 ML VIAL IVP ONE ×2 (07:05→16:04)
[2021-12-28] MEDS ORDERED: *HR* FentaNYL (PF) 250 MCG/5 ML VIAL ONE (07:05)
[2021-12-28] MEDS ORDERED: *HR* Rocuronium Bromide 50 MG/5 ML VIAL ONE ×3 (07:05→14:29)
[2021-12-28] MEDS ORDERED: Ondansetron 4 MG/2 ML VIAL ONE (07:13)
[2021-12-28] MEDS ORDERED: *HR* Phenylephrine 10 MG/ML VIAL ONE (07:13)
[2021-12-28] MEDS ORDERED: *HR* Vasopressin 20 UNIT/ML VIAL ONE ×2 (07:19→13:05)
[2021-12-28] MEDS ORDERED: Ketamine HCL *QUVA* 50mg (1mL) SYRINGE ONE (07:19)
[2021-12-28] MEDS ORDERED: Lidocaine -MPF 2% 2 ML VIAL ONE (07:30)
[2021-12-28] MEDS ORDERED: Lidocaine -MPF 4% 5 ML AMPUL ONE (07:34)
[2021-12-28] MEDS ORDERED: *HR* Propofol 200 MG/20 ML VIAL IVP ONE ×2 (07:35→16:04)
[2021-12-28] MEDS ORDERED: Famotidine 20 MG/2 ML VIAL IVP ONE (07:39)
[2021-12-28] MEDS ORDERED: *HR* Labetalol 20 MG/4 ML SYRINGE IVP PRN ×2 (07:39→21:42)
[2021-12-28] MEDS ORDERED: *HR* HYDROmorphone 2 MG TABLET PO PRN (07:39)
[2021-12-28] MEDS ORDERED: Pregabalin 75 MG CAPSULE PO ONE (07:39)
[2021-12-28] MEDS ORDERED: *HR* OxyCODONE Immed Rel 5 MG TABLET PO PRN (07:39)
[2021-12-28] MEDS ORDERED: *HR* HYDROmorphone PF 0.5 MG/0.5 ML SYRINGE IVP PRN (07:39)
[2021-12-28] MEDS ORDERED: Acetaminophen IV 1,000 MG/100 ML BAG IVPB ONE (07:39)
[2021-12-28] MEDS ORDERED: *HR* Heparin 5,000 UNIT/ML VIAL ONE ×2 (07:55→11:06)
[2021-12-28] MEDS ORDERED: EPHEDrine 50 MG/ML VIAL ONE (09:00)
[2021-12-28] MEDS ORDERED: niCARdipine 20 MG/200 ML MLS IVC ONE (10:20)
[2021-12-28] MEDS ORDERED: Albumin Human 5% 12.5 GM/250 ML IV.SOLN ONE ×2 (11:21→11:25)
[2021-12-28 11:42] LABS: ABG Base Excess -12 mEq/L (-2 to 3); ABG Chloride 113 mEq/L (98-107); ABG Glucose 176 mg/dL (60-95); ABG HCO3 17 mEq/L (21-27); ABG Ionized Calcium 0.99 mmol/L (1.15-1.35); ABG Oxygen Saturation 93 % (95-98); ABG PCO2 52 mmHg (35-45); ABG PH 7.14 pH Units (7.32-7.45); ABG PO2 89 mmHg (85-104); ABG TCO2 19 mEq/L (20-26)
[2021-12-28] MEDS ORDERED: *HR* Magnesium Sulfate 1 GM/2 ML VIAL ONE (11:48)
[2021-12-28] MEDS ORDERED: Calcium Gluconate 1,000 MG/10 ML VIAL ONE (11:52)
[2021-12-28 12:30] LABS: Basophils # 0.1 K/mcL (0.0-0.2); Basophils % 0.8 %; Eosinophils # 0.1 K/mcL (0.0-0.6); Eosinophils % 0.7 %; Hematocrit 36.2 % (37.5-50.1); Hemoglobin 11.2 g/dL (12.9-16.9); Immature Granulocytes % 2.4 % (0-4); Lymphocytes % 19.5 %; Mean Corpuscular HGB Conc 30.9 g/dL (31.6-35.5); Mean Corpuscular Hemoglobin 29.6 pg (28.0-33.3); Mean Corpuscular Volume 95.5 fL (83.0-100.0); Mean Platelet Volume 8.9 fL (9.4-12.4); Monocytes # 0.5 K/mcL (0.0-1.3); Monocytes % 3.1 %; Neutrophils # 11.1 K/mcL (1.6-8.9); Platelet Count 226 K/mcL (140-400); Red Blood Count 3.79 M/mcL (4.19-5.50); Red Cell Distribution Width 14.7 % (11.5-14.5); Segmented Neutrophils % 73.5 %; White Blood Count 15.1 K/mcL (4.3-11.1)
[2021-12-28 12:37] LABS: INR 1.1; Prothrombin Time 11.9 Seconds (9.4-12.1)
[2021-12-28 13:25] LABS: ABG Base Excess -11 mEq/L (-2 to 3); ABG Chloride 113 mEq/L (98-107); ABG Glucose 248 mg/dL (60-95); ABG HCO3 18 mEq/L (21-27); ABG Ionized Calcium 1.03 mmol/L (1.15-1.35); ABG Oxygen Saturation 99 % (95-98); ABG PCO2 49 mmHg (35-45); ABG PH 7.17 pH Units (7.32-7.45); ABG PO2 146 mmHg (85-104); ABG TCO2 19 mEq/L (20-26)
[2021-12-28 15:17] LABS: ABG Base Excess -13 mEq/L (-2 to 3); ABG Chloride 116 mEq/L (98-107); ABG Glucose 197 mg/dL (60-95); ABG HCO3 17 mEq/L (21-27); ABG Ionized Calcium 0.95 mmol/L (1.15-1.35); ABG Oxygen Saturation 95 % (95-98); ABG PCO2 52 mmHg (35-45); ABG PH 7.11 pH Units (7.32-7.45); ABG PO2 104 mmHg (85-104); ABG TCO2 18 mEq/L (20-26)
[2021-12-28] MEDS ORDERED: Sodium Bicarbonate 50 MEQ/50 ML VIAL ONE (15:29)
[2021-12-28 15:38] LABS: Basophils # 0.1 K/mcL (0.0-0.2); Basophils % 0.6 %; Eosinophils % 0.2 %; Hematocrit 35.4 % (37.5-50.1); Hemoglobin 11.2 g/dL (12.9-16.9); Immature Granulocytes % 3.8 % (0-4); Lymphocytes # 1.7 K/mcL (0.6-4.6); Mean Corpuscular HGB Conc 31.6 g/dL (31.6-35.5); Mean Corpuscular Hemoglobin 30.3 pg (28.0-33.3); Mean Corpuscular Volume 95.7 fL (83.0-100.0); Mean Platelet Volume 9.3 fL (9.4-12.4); Monocytes # 0.6 K/mcL (0.0-1.3); Monocytes % 3.8 %; Neutrophils # 13.5 K/mcL (1.6-8.9); Platelet Count 112 K/mcL (140-400); Red Cell Distribution Width 14.6 % (11.5-14.5); Segmented Neutrophils % 81.6 %; White Blood Count 16.6 K/mcL (4.3-11.1)
[2021-12-28] MEDS ORDERED: Vancomycin 1,000 MG, Sodium Chloride IRRigation 1,000 ML IR ONE (15:50)
[2021-12-28] MEDS ORDERED: *HR* Labetalol 20 MG/4 ML SYRINGE IVP ONE (16:04)
[2021-12-28] MEDS ORDERED: *HR* FentaNYL (PF) 100 MCG/2 ML VIAL ONE (16:04)
[2021-12-28] MEDS ORDERED: *HR* HYDROMORPHONE 2 MG/ML VIAL ONE (16:05)
[2021-12-28 16:10] LABS: Albumin 2.3 g/dL (3.5-5.7); Albumin/Globulin Ratio 1.9 (1.1-2.2); Bilirubin,Total 0.3 mg/dL (0.3-1.0); Calcium 6.2 mg/dL (8.6-10.3); Globulin 1.2 g/dL (2.4-3.5); Potassium 4.9 mEq/L (3.5-5.1); Total Protein 3.5 g/dL (6.4-8.9)
[2021-12-28] MEDS ORDERED: FentaNYL (PF) 1,000 MCG/100 ML IV.SOLN IVC SCH (16:30)
[2021-12-28 16:53] LABS: ABG Base Excess -10 mEq/L (-2 to 3); ABG HCO3 20 mEq/L (21-27); ABG Oxygen Saturation 86 % (95-98); ABG PCO2 66 mmHg (35-45); ABG PO2 71 mmHg (85-104); ABG TCO2 22 mEq/L (20-26); Blood Gas Modality ASSIST CONTROL; Blood Gas VT 500 cc
[2021-12-28] MEDS ORDERED: Furosemide 40 MG/4 ML VIAL ONE (16:58)
[2021-12-28] MEDS ORDERED: Furosemide 40 MG/4 ML VIAL IVP ONE ×2 (17:02→22:00)
[2021-12-28 18:29] LABS: ABG Base Excess -9 mEq/L (-2 to 3); ABG HCO3 20 mEq/L (21-27); ABG Oxygen Saturation 88 % (95-98); ABG PCO2 55 mmHg (35-45); ABG PH 7.18 pH Units (7.32-7.45); ABG PO2 69 mmHg (85-104); ABG TCO2 22 mEq/L (20-26); Blood Gas VT 500 cc
[2021-12-28] MEDS ORDERED: Artificial Tears SOLN 15 ML BOTTLE BOTH EYES PRN (21:39)
[2021-12-28] MEDS ORDERED: Calcium Gluconate 1gm/50mL 1 GM/50 ML BAG IVPB PRN (21:42)
[2021-12-28] MEDS ORDERED: Naloxone 0.4 MG/ML INJ IVP PRN (21:42)
[2021-12-28] MEDS ORDERED: CeFAZolin Syr 3,000MG/30 ML 3,000 MG/30 ML SYRINGE IVPB SCH (22:00)
[2021-12-28 22:11] LABS: ABG Base Excess -7 mEq/L (-2 to 3); ABG HCO3 21 mEq/L (21-27); ABG Oxygen Saturation 97 % (95-98); ABG PCO2 46 mmHg (35-45); ABG PH 7.26 pH Units (7.32-7.45); ABG PO2 106 mmHg (85-104); ABG TCO2 22 mEq/L (20-26); Blood Gas Modality AF; Blood Gas VT 500 cc
[2021-12-28 22:24] LABS: VBG Ionized Calcium 1.08 mmol/L (1.15-1.35)
[2021-12-28 22:37] LABS: Calcium 7.3 mg/dL (8.6-10.3); Magnesium 1.7 mg/dL (1.6-2.6); Phosphorous 4.2 mg/dL (2.7-4.5); Potassium 5.7 mEq/L (3.5-5.1)
[2021-12-28] MEDS: 0.9 % Sodium Chloride 1,000 ML IVC SCH (22:39)
[2021-12-28] MEDS: Artificial Tears SOLN 15 ML BOTTLE BOTH EYES SCH (22:39)
[2021-12-28] MEDS: *HR* Metoprolol 5 MG/5 ML VIAL IVP SCH (22:55)
[2021-12-28] MEDS: Chlorhexidine Rinse 15 ML MOUTHWASH MM SCH (23:01)
[2021-12-28] MEDS: ceFAZolin 3,000 MG in 0.9 % Sodium Chloride 100 ML IVPB SCH (23:38)
[2021-12-29 03:43] LABS: ABG Base Excess -7 mEq/L (-2 to 3); ABG HCO3 19 mEq/L (21-27); ABG Oxygen Saturation 97 % (95-98); ABG PCO2 39 mmHg (35-45); ABG PH 7.29 pH Units (7.32-7.45); ABG PO2 104 mmHg (85-104); ABG TCO2 20 mEq/L (20-26)
[2021-12-29] MEDS: *HR* Metoprolol 5 MG/5 ML VIAL IVP SCH ×5 (03:54→23:38)
[2021-12-29 03:58] LABS: Calcium 7.5 mg/dL (8.6-10.3); Magnesium 2.1 mg/dL (1.6-2.6); Phosphorous 4.4 mg/dL (2.7-4.5); Potassium 5.4 mEq/L (3.5-5.1)
[2021-12-29 04:45] LABS: ABG Base Excess -6 mEq/L (-2 to 3); ABG HCO3 20 mEq/L (21-27); ABG Oxygen Saturation 93 % (95-98); ABG PCO2 40 mmHg (35-45); ABG PH 7.31 pH Units (7.32-7.45); ABG PO2 75 mmHg (85-104); ABG TCO2 21 mEq/L (20-26); Blood Gas Modality AF; Blood Gas VT 500 cc
[2021-12-29] MEDS: Artificial Tears SOLN 15 ML BOTTLE BOTH EYES SCH ×5 (05:36→20:03)
[2021-12-29] MEDS: *HR* Heparin 5,000 UNIT/ML VIAL SQ SCH ×2 (06:00→17:33)
[2021-12-29] MEDS ORDERED: *HR* Heparin 5,000 UNIT/ML VIAL SQ SCH (06:00)
[2021-12-29] MEDS: FentaNYL (PF) 1,000 MCG/100 ML IV.SOLN IVC SCH ×2 (06:13→17:33)
[2021-12-29] MEDS: 0.9 % Sodium Chloride 1,000 ML IVC SCH ×2 (06:55→17:32)
[2021-12-29 07:34] LABS: Basophils % 0.1 %; Hematocrit 43.4 % (37.5-50.1); Immature Granulocytes % 0.7 % (0-4); Lymphocytes # 0.9 K/mcL (0.6-4.6); Lymphocytes % 5.9 %; Mean Corpuscular Hemoglobin 29.8 pg (28.0-33.3); Mean Corpuscular Volume 93.1 fL (83.0-100.0); Mean Platelet Volume 9.1 fL (9.4-12.4); Monocytes % 6.7 %; Platelet Count 130 K/mcL (140-400); Red Blood Count 4.66 M/mcL (4.19-5.50); Red Cell Distribution Width 14.9 % (11.5-14.5); Segmented Neutrophils % 86.6 %; White Blood Count 15.1 K/mcL (4.3-11.1)
[2021-12-29 07:39] LABS: Hemoglobin 13.9 g/dL (12.9-16.9)
[2021-12-29] MEDS: Chlorhexidine Rinse 15 ML MOUTHWASH MM SCH ×2 (08:52→20:01)
[2021-12-29] MEDS ORDERED: Pantoprazole 40 MG VIAL IVP SCH (09:00)
[2021-12-29] MEDS: ceFAZolin 3,000 MG in 0.9 % Sodium Chloride 100 ML IVPB SCH (09:03)
[2021-12-29] MEDS ORDERED: Furosemide 40 MG/4 ML VIAL IVP ONE (10:01)
[2021-12-29 11:39] LABS: Albumin/Globulin Ratio 1.4 (1.1-2.2); Bilirubin,Indirect 0.3 mg/dL (0.0-1.0); Bilirubin,Total 0.3 mg/dL (0.3-1.0); Globulin 2.1 g/dL (2.4-3.5); Total Protein 5.1 g/dL (6.4-8.9)
[2021-12-29] MEDS ORDERED: Morphine Sulfate 2 MG/ML SYRINGE IVP ONE (16:21)
[2021-12-29] MEDS ORDERED: Ondansetron 4 MG/2 ML VIAL IVP PRN (17:24)
[2021-12-29] MEDS: Acetaminophen IV 1,000 MG/100 ML BAG IVPB PRN (18:24)
[2021-12-29 22:57] LABS: Hematocrit 40.7 % (37.5-50.1); Hemoglobin 13.4 g/dL (12.9-16.9)
[2021-12-30] MEDS: Artificial Tears SOLN 15 ML BOTTLE BOTH EYES SCH ×3 (00:34→07:20)
[2021-12-30] MEDS: 0.9 % Sodium Chloride 1,000 ML IVC SCH ×2 (02:47→13:47)
[2021-12-30] MEDS: Pantoprazole 40 MG VIAL IVP SCH ×2 (05:56→17:55)
[2021-12-30] MEDS: *HR* Metoprolol 5 MG/5 ML VIAL IVP SCH ×4 (05:58→23:48)
[2021-12-30] MEDS: *HR* Heparin 5,000 UNIT/ML VIAL SQ SCH ×3 (06:00→18:33)
[2021-12-30] MEDS: Chlorhexidine Rinse 15 ML MOUTHWASH MM SCH ×2 (07:23→22:08)
[2021-12-30] MEDS: Acetaminophen IV 1,000 MG/100 ML BAG IVPB PRN (10:11)
[2021-12-30] MEDS ORDERED: *HR* Dextrose 50 % in Water (Syg) 50 ML SYRINGE ONE (22:49)
[2021-12-30 22:52] LABS: Calcium 8.2 mg/dL (8.6-10.3); Potassium 3.8 mEq/L (3.5-5.1)
[2021-12-31] MEDS ORDERED: Calcium Gluconate 1gm/50mL 1 GM/50 ML BAG IVPB PRN (04:47)
[2021-12-31] MEDS ORDERED: Acetaminophen IV 1,000 MG/100 ML BAG IVPB PRN (04:47)
[2021-12-31] MEDS ORDERED: 0.9 % Sodium Chloride 1,000 ML IVC SCH (04:47)
[2021-12-31] MEDS ORDERED: Bisacodyl 10 MG RECTAL SUPPOSITORY RC ONE (04:47)
[2021-12-31] MEDS ORDERED: *HR* Labetalol 20 MG/4 ML SYRINGE IVP PRN (04:47)
[2021-12-31] MEDS ORDERED: Naloxone 0.4 MG/ML INJ IVP PRN (04:47)
[2021-12-31] MEDS: *HR* Metoprolol 5 MG/5 ML VIAL IVP SCH ×4 (05:38→23:01)
[2021-12-31] MEDS: *HR* Heparin 5,000 UNIT/ML VIAL SQ SCH ×2 (06:03→17:04)
[2021-12-31] MEDS: 0.9 % Sodium Chloride 1,000 ML IVC SCH (07:44)
[2021-12-31 07:46] LABS: Basophils % 0.3 %; Eosinophils % 0.1 %; Hematocrit 33.4 % (37.5-50.1); Immature Granulocytes % 0.6 % (0-4); Lymphocytes # 1.7 K/mcL (0.6-4.6); Lymphocytes % 13.8 %; Mean Corpuscular HGB Conc 33.5 g/dL (31.6-35.5); Mean Corpuscular Hemoglobin 30.6 pg (28.0-33.3); Mean Corpuscular Volume 91.3 fL (83.0-100.0); Mean Platelet Volume 9.8 fL (9.4-12.4); Monocytes % 7.6 %; Neutrophils # 9.7 K/mcL (1.6-8.9); Platelet Count 138 K/mcL (140-400); Red Blood Count 3.66 M/mcL (4.19-5.50); Red Cell Distribution Width 14.8 % (11.5-14.5); Segmented Neutrophils % 77.6 %; White Blood Count 12.5 K/mcL (4.3-11.1)
[2021-12-31 07:47] LABS: Hemoglobin 11.2 g/dL (12.9-16.9)
[2021-12-31 07:56] LABS: Potassium 3.6 mEq/L (3.5-5.1)
[2021-12-31] MEDS: Chlorhexidine Rinse 15 ML MOUTHWASH MM SCH ×2 (08:22→20:12)
[2022-01-01] MEDS: *HR* Metoprolol 5 MG/5 ML VIAL IVP SCH (05:22)
[2022-01-01] MEDS: *HR* Heparin 5,000 UNIT/ML VIAL SQ SCH (05:22)
[2022-01-01 06:25] LABS: Basophils # 0.1 K/mcL (0.0-0.2); Basophils % 0.7 %; Eosinophils # 0.3 K/mcL (0.0-0.6); Eosinophils % 2.4 %; Hematocrit 34.6 % (37.5-50.1); Hemoglobin 11.1 g/dL (12.9-16.9); Immature Granulocytes % 0.7 % (0-4); Lymphocytes # 2.2 K/mcL (0.6-4.6); Lymphocytes % 21.8 %; Mean Corpuscular HGB Conc 32.1 g/dL (31.6-35.5); Mean Corpuscular Hemoglobin 29.6 pg (28.0-33.3); Mean Corpuscular Volume 92.3 fL (83.0-100.0); Mean Platelet Volume 9.4 fL (9.4-12.4); Monocytes # 0.7 K/mcL (0.0-1.3); Monocytes % 6.8 %; Neutrophils # 6.9 K/mcL (1.6-8.9); Platelet Count 142 K/mcL (140-400); Red Blood Count 3.75 M/mcL (4.19-5.50); Red Cell Distribution Width 14.7 % (11.5-14.5); Segmented Neutrophils % 67.6 %; White Blood Count 10.3 K/mcL (4.3-11.1)
[2022-01-01 06:48] LABS: Calcium 8.3 mg/dL (8.6-10.3); Potassium 3.3 mEq/L (3.5-5.1)
[2022-01-01] MEDS: Chlorhexidine Rinse 15 ML MOUTHWASH MM SCH (07:33)
[2022-01-01] MEDS ORDERED: *HR* OxyCODONE Immed Rel 5 MG TABLET PO PRN (07:37)
[2022-01-01] MEDS ORDERED: *HR* HYDROcodone/Acet 5/325 mg TABLET PO PRN (07:37)
[2022-01-01] MEDS ORDERED: Acetaminophen 325 MG TABLET PO PRN (07:37)
[2022-01-01] MEDS: Gabapentin 300 MG CAPSULE PO SCH ×2 (07:57→14:06)
[2022-01-01] MEDS ORDERED: *HR* Amiodarone 200 MG TABLET PO SCH (09:00)
[2022-01-01] MEDS ORDERED: Aspirin Enteric Coated 81 MG Tablet PO SCH (09:00)
[2022-01-01 12:06] VITALS: PULSE 65; TEMP 97.5; O2SAT 93
[2022-01-01 12:56] VITALS: BP 142/53
== END 2022-01-01 15:30 | disposition home or self-care (01) | DRG 268 ==
LOC: SAMDAY 06:11 → ICNU 16:34 → 2NNU 12-31 02:59
PROVIDERS: ADMIT Surgery; ATTEND Surgery